=== PATIENT | male | born 1950 | race Caucasian/White ===

== ENCOUNTER → 2023-11-21 12:54 | Outpatient (REF) | payer MEDICARE, SELFPAY | LOC: RAD 12:54 | PROVIDERS: ATTENDING PHYSICIAN Surgery Vascular Surgery; FAMILY PHYSICIAN Family Medicine | DX: Z01.818 Encounter for other preprocedural examination (principal) | CPT/HCPCS: 93985 ==

== ENCOUNTER 2023-12-18 06:22 | Day surgery (SDC) | payer MEDICARE, SELFPAY ==
--- NOTE | 2023-12-12 09:32 | PTCARENOTE ---
Dr. Calderón reviewed ECG done on 09/01/23; no actions requested.
[2023-12-18] VITALS (11 sets, daily range): BP systolic 118–147; BP diastolic 60–110; BMI 28.7
[2023-12-18] MEDS: NSS 500 IV (06:30)
[2023-12-18] MEDS: PERIDEX 0.12% ORAL RINSE 15 ML PO (06:44)
[2023-12-18] MEDS: BACTROBAN NASAL 1 GRAM NASAL (06:44)
--- NOTE | 2023-12-18 06:55 | W.SUR.PREOP ---
Pre-Operative Surgical Note
-
I have examined this patient prior to the performance of the scheduled procedure.
The patient's condition is unchanged from the time of the current History and
Physical and the patient is able to undergo the scheduled procedure.
[2023-12-18 07:08] LABS: Glucose - Point of Care 105 mg/dl (70-99)
[2023-12-18 07:12] LABS: Hematocrit 30.3 % (39.0-52.0); Hemoglobin 9.8 g/dL (13.0-18.0); Mean Corp Hgb Conc. 32.3 g/dL (33.0-37.0); Mean Corpuscular Hgb 29.7 pg (27.0-31.0); Mean Corpuscular Volume 91.8 fL (80.0-94.0); Mean Platelet Volume 10.2 fL (7.4-10.4); Platelet Count 192 10^3/uL (130-400); Red Cell Dist. Width 14.7 % (11.5-14.5)
[2023-12-18 07:21] LABS: INR 1.17; PT 14.7 Sec (11.4-14.6)
[2023-12-18 07:22] LABS: APTT 27.2 Sec (23.4-35.0)
[2023-12-18 07:24] LABS: Blood Urea Nitrogen 77 mg/dl (9-20); Calcium 9.3 mg/dl (8.4-10.2); Carbon Dioxide 18 mmol/L (22-30); Chloride 111 mmol/L (98-107); Glucose 99 mg/dl (70-99); Potassium 4.3 mmol/L (3.5-5.1); Sodium 140 mmol/L (135-145); eGFR 16.87
--- NOTE | 2023-12-18 09:19 | W.IMMPOSTOP ---
Surgical Immed Post Op Note
-
Primary Surgeon: Dr. Paulo Zaragoza MD
Assisting Surgeon: Dr. Lalito Forte MD, PhD
Pre-op Diagnosis: CKD requiring dialysis access
Post-op Diagnosis: LUE AVF creation for dialysis access
Procedure Performed: LUE AVF creation for dialysis access
Anesthesia Type: General
Specimen / Cultures: N/A
Estimated Blood Loss: None/minimal
Complications: None
Operative Findings: Preoperatively, the left upper extremity basilic vein and cephalic veins were evaluated by ultrasound. Incision was made in the left upper extremity, we carefully dissected until identifying the left basilic vein. A vessel loop
was passed around the left basilic vein. We then dissected and exposed the left brachial artery. Proximal and distal control of the left brachial artery was obtained with vessel loops. The basilic vein was ligated with a silk tie and subsequently
divided. Arteriotomy was performed in the left brachial artery and an end to side anastomosis between the left basilic vein and left brachial artery was performed with 7-0 prolene suture. Following completion of the anastomosis, a palpable thrill
was confirmed in the left basilic vein proximally and a palpable pulse was noted at the left radial artery. The incision was closed with two layers of suture and skin glue.
--- NOTE | 2023-12-18 09:22 | OR.RPT ---
Operative Report
Operative Report
Date of Operation: 12/18/2023
Pre Op Diagnosis: Chronic kidney disease with anticipated need for hemodialysis
Post Op Diagnosis: Chronic kidney disease with anticipated need for hemodialysis
Procedure: Creation of left upper extremity brachiobasilic AV fistula (first stage of a planned two-stage basilic vein transposition)
Surgeon: Paulo Zaragoza III, MD
[facility]: Lalito Forte MD PGY1
Anesthesia: General
Complications: None
Estimated Blood Loss: 15 cc
History and Indications for Procedure: 73-year-old male with chronic kidney disease and anticipated need for hemodialysis initiation.
Procedure in Detail: Lui Choudhury was correctly identified and placed supine on the operating table. After adequate induction of anesthesia the left arm was positioned, prepped and draped in the usual sterile fashion. Preoperative antibiotics
were administered. A timeout procedure was performed with the nursing and anesthesia staff confirming the patients identity as well as the nature and laterality of the procedure.
I performed intraoperative ultrasound on the veins of the left arm. I identified the upper arm basilic vein from the elbow to the axilla. The brachial artery was also identified in the distal upper arm and proximal forearm. The appropriate site for
the incision was then identified in the distal upper arm, just proximal to the elbow.
An incision was then made in the distal upper arm. Careful sharp dissection was performed and the basilic vein exposed. Branches of the vein were ligated between ties. The brachial artery was exposed with sharp dissection. Proximal and distal
control was obtained with vessel loops.
The distal end of the basilic vein was ligated with a silk tie. The vein was transected and flushed proximally with heparinized saline. The vein flushed easily and without resistance. The vessel loops on the artery were secured. An arteriotomy was
made with an 11-blade. This was extended just slightly proximally and distally with Santiago scissors. The proximal and distal artery was flushed with heparinized saline. The end of the vein was spatulated slightly. An end-to-side anastomosis was
performed from the end of the basilic vein to the brachial artery with a running 7-0 Prolene. At the completion of the anastomosis the proximal vessel loop was released first. After several heartbeats the distal brachial artery loop was released.
The suture line was closely inspected and hemostasis achieved. There was an excellent thrill in the vein. There was a good pulse in the brachial artery proximal and distal to the anastomosis.
The wound was irrigated with saline. Hemostasis was achieved in the wound bed. The wound was closed in multiple layers and sterile dressings applied.
The patient tolerated the procedure well and was taken to the PACU in stable condition.
Attestation: I was present and responsible for the entire procedure
Signed:
Paulo Zaragoza III, MD
[facility] V[facility] Surgery
[phone] (jjqg)
[2023-12-18 09:24] LABS: Glucose - Point of Care 119 mg/dl (70-99)
== END 2023-12-18 11:26 | disposition home or self-care (01) ==
LOC: CATH 06:22
PROVIDERS: ATTENDING PHYSICIAN Surgery Vascular Surgery; FAMILY PHYSICIAN Family Medicine
DX: I12.9 Hypertensive chronic kidney disease with stage 1 through stage 4 chronic kidney disease, or unspecified chronic kidney disease (principal); N18.9 Chronic kidney disease, unspecified; I25.10 Atherosclerotic heart disease of native coronary artery without angina pectoris; Z79.01 Long term (current) use of anticoagulants; Z87.891 Personal history of nicotine dependence
CPT/HCPCS: 36821; 80048; 82962; 85027; 85610; 85730

== ENCOUNTER → 2024-01-24 12:36 | Outpatient (REF) | payer MEDICARE, SELFPAY | LOC: RAD 12:36 | PROVIDERS: ATTENDING PHYSICIAN Registered Nurse; FAMILY PHYSICIAN Family Medicine | DX: N18.9 Chronic kidney disease, unspecified (principal); I77.0 Arteriovenous fistula, acquired | CPT/HCPCS: 93990 ==

== ENCOUNTER 2024-02-15 07:22 | Day surgery (SDC) | payer MEDICARE, SELFPAY ==
[2024-02-15] VITALS (10 sets, daily range): BP systolic 116–153; BP diastolic 64–78; BMI 37.8
[2024-02-15 07:57] LABS: Glucose - Point of Care 111 mg/dl (70-99)
[2024-02-15] MEDS: BACTROBAN NASAL 1 GRAM NASAL (08:01)
[2024-02-15] MEDS: NSS 500 IV (08:05)
[2024-02-15 08:11] LABS: Hemoglobin 10.6 g/dL (13.0-18.0); Mean Corp Hgb Conc. 32.1 g/dL (33.0-37.0); Mean Corpuscular Hgb 29.9 pg (27.0-31.0); Mean Platelet Volume 10.1 fL (7.4-10.4); Platelet Count 235 10^3/uL (130-400); Red Blood Cell Count 3.55 10^6/uL (4.70-6.10); Red Cell Dist. Width 12.7 % (11.5-14.5); White Blood Cell Count 10.4 10^3/uL (4.8-10.8)
[2024-02-15 08:26] LABS: Blood Urea Nitrogen 65 mg/dl (9-20); Calcium 9.4 mg/dl (8.4-10.2); Carbon Dioxide 26 mmol/L (22-30); Chloride 105 mmol/L (98-107); Estimated Creatinine Clearance 17 ml/min; Glucose 110 mg/dl (70-99); Sodium 141 mmol/L (135-145); eGFR 17.46
[2024-02-15 08:28] LABS: INR 1.24; PT 15.4 Sec (11.4-14.6)
[2024-02-15 08:29] LABS: APTT 33.1 Sec (23.4-35.0)
--- NOTE | 2024-02-15 10:37 | OR.RPT ---
Operative Report
Operative Report
Date of Operation: 02/15/2024
Pre Op Diagnosis: Left upper extremity brachiobasilic AV fistula (status post 1st stage of planned 2 stage basilic vein transposition)
Post Op Diagnosis: Left upper extremity brachiobasilic AV fistula (status post 1st stage of planned 2 stage basilic vein transposition)
Procedure: Revision of left upper extremity brachiobasilic AV fistula with transposition of the basilic vein (second stage BVT)
Surgeon: Paulo Zaragoza III, MD Hand Chain Maker:
Hand Chain Maker: Lalito Forte MD PhD, PGY1
Anesthesia: General
Complications: None
Estimated Blood Loss: 20 cc
History and Indications for Procedure: 73-year-old male who is status post first stage brachiobasilic AV fistula with plan for revision and transposition of the basilic vein.
Procedure in Detail: Lui Choudhury was correctly identified and placed supine on the operating table. After adequate induction of anesthesia the left arm was abducted 90 degrees. A timeout procedure was performed with the nursing and anesthesia
staff confirming the patient's identity and the nature and laterality of the procedure. The basilic vein was marked in the upper arm with ultrasound guidance. The arm was then circumferentially prepped and draped in the usual sterile fashion. We
made an incision over the medial upper arm. The entire basilic vein was dissected with careful sharp dissection. All branches were ligated and divided between ties and metal clips. The vein was good caliber along the entire course and had an
excellent thrill. Once the entire vein had been carefully dissected we then created a gentle curved tunnel lateral to the incision over the bicep with a tunneling device. Proximal control was obtained on the vein with a curved pediatric clamp. The
vein was marked and then transected near the arterial anastomosis. The vein was then brought through the tunnel carefully. The two ends of the vein were anastomosed to one another in an end-to-end fashion using a running 7-0 Prolene suture. At the
completion of the anastomosis the clamp was released and flow restored through the fistula. There was an excellent thrill in the tunnel. The suture line was inspected for hemostasis and this was achieved. The wound was irrigated with warm saline
solution. Hemostasis was achieved in the wound bed. The wound was then closed in multiple layers and sterile dressings applied. The patient had an easily palpable thrill in the tunnel at the conclusion of the case.
Attestation: I was present and responsible for the entire procedure
Signed:
Paulo Zaragoza III, MD
[facility] V[facility] Surgery
[phone] (cell)
--- NOTE | 2024-02-15 10:38 | W.IMMPOSTOP ---
Surgical Immed Post Op Note
-
Primary Surgeon: Dr. Paulo Zaragoza III, MD
Assisting Surgeon: Dr. Lalito Forte MD, PhD (PGY-1)
Pre-op Diagnosis: End stage renal disease requiring dialysis s/p stage 1 brachio-basilic AV fistula
Post-op Diagnosis: End stage renal disease requiring dialysis s/p stage 1 brachio-basilic AV fistula and now s/p stage 2 superficialization of the brachio-basilic AV fistula
Procedure Performed: Stage 2 superficialization/transposition of brachio-basilic AV fistula
Anesthesia Type: General
Specimen / Cultures: None
Estimated Blood Loss: Minimal
Complications: None
Operative Findings: The patient was brought to the OR and placed in the supine position. After induction of anesthesia, ultrasound guidance was used to map the course of the basilic vein from the prior anastomosis to the axillary vein and the skin
was marked along this trajectory. The patient was then prepped and draped in usual sterile fashion. The prior AV fistula incision was extended toward the axilla along the course of the basilic vein. Soft tissues were dissected with a combination of
electrocautery and sharp dissection. The basilic vein was circumferentially dissected along its entire length. Large venous branches of the basilic vein were ligated and divided with silk ties. A superficial soft tissue tunnel was created along the
subcutaneous tissue cranial to the basilic vein. A clamp was placed distally on the basilic vein. The vein was transected and heparinized saline was injected into the vein proximally and the proximal vein was passed through the subcutaneous tunnel.
Then a running 7-0 prolene suture was used to perform an end-to-end anastomosis between the two ends of the basilic vein. Following the anastomosis, the clamp was removed and an excellent palpable thrill was noted along the course of the basilic
vein. Hemostasis was achieved along the wound bed. The soft tissues and skin were closed with running 3-0 and 4-0 sutures and skin glue on the surface. At the conclusion of the case there was an excellent palpable thrill along the course of the
basilic vein and a palpable radial pulse. The patient was transported to PACU in stable condition.
[2024-02-15 10:39] LABS: Glucose - Point of Care 125 mg/dl (70-99)
== END 2024-02-15 12:59 | disposition home or self-care (01) ==
LOC: CATH 07:22
PROVIDERS: ATTENDING PHYSICIAN Surgery Vascular Surgery; FAMILY PHYSICIAN Family Medicine
DX: Z49.01 Encounter for fitting and adjustment of extracorporeal dialysis catheter (principal); I12.0 Hypertensive chronic kidney disease with stage 5 chronic kidney disease or end stage renal disease; E11.22 Type 2 diabetes mellitus with diabetic chronic kidney disease; N18.6 End stage renal disease; Z99.2 Dependence on renal dialysis; E78.5 Hyperlipidemia, unspecified; I25.10 Atherosclerotic heart disease of native coronary artery without angina pectoris; Z87.891 Personal history of nicotine dependence; Z79.01 Long term (current) use of anticoagulants
CPT/HCPCS: 36832; 80048; 82962; 85027; 85610; 85730

== ENCOUNTER 2024-03-31 15:00 | Inpatient (IN) | payer MEDICARE, SELFPAY ==
[2024-03-27] VITALS (11 sets, daily range): BP systolic 123–149; BP diastolic 57–74; BMI 29.2
[2024-03-27 13:07] LABS: Glucose - Point of Care 100 mg/dl (70-99)
--- NOTE | 2024-03-27 15:30 | W.PN.ADMIT ---
Progress Note - Admit
Progress Note - Admit
pt s/p cysto/ sp tube placement
admit for observation for hematuria
sp tube and urethral flaherty to bag drainage
[2024-03-27] MEDS: NSS 1000 IV (16:18)
--- NOTE | 2024-03-27 16:23 | SUR.PHASEI ---
patient has both a suprapubic tube and flaherty cath - flaherty through compression stockings on left, suprapubic through compression stocking on right - per Dr Pisano. flaherty was slight blood tinged and now brownish, suprapubic is bloody drainage
[2024-03-27] MEDS: NEURONTIN 100 MG PO ×2 (17:36→21:01)
[2024-03-27] MEDS: SODIUM BICARBONATE 650 MG PO ×2 (17:36→21:00)
[2024-03-27] MEDS: COLACE 100 MG PO (20:44)
[2024-03-27] MEDS: LIPITOR 40 MG PO (21:00)
[2024-03-27] MEDS: KEPPRA 500 MG PO (21:00)
[2024-03-28] VITALS (12 sets, daily range): BP systolic 84–155; BP diastolic 44–86
[2024-03-28] MEDS: NSS 1000 IV ×2 (04:00→18:19)
[2024-03-28] MEDS: COLACE 100 MG PO (07:30)
[2024-03-28] MEDS: ZOLOFT 100 MG PO (07:30)
[2024-03-28] MEDS: SODIUM BICARBONATE 650 MG PO ×3 (07:31→22:33)
[2024-03-28] MEDS: NEURONTIN 100 MG PO ×3 (07:31→22:33)
[2024-03-28] MEDS: VITAMIN D3 (cholecalciferol) 50 MCG PO (07:31)
[2024-03-28] MEDS: ROCALTROL 0.25 MCG PO (07:31)
[2024-03-28] MEDS: KEPPRA 500 MG PO ×2 (07:31→22:33)
--- NOTE | 2024-03-28 07:45 | W.PN.URO.CBU ---
Today's Communication / Plan
-
sp tube plugged
discharge later today
Assessment / Plan
-
s/p sp tube placement
sp tube plugged
advance diet/UOOB to chair
discharge today if site stays dry
Diagnosis
-
Date of Service: March 28, 2024
-
Patient Diagnosis:
urinary retention
Post Op Day:
sp tube placement 03/28
Subjective
-
pt without complaint
no urine leak around sp tube site
urine clear
Objective
-
Vital Signs
Temp Pulse Resp BP Pulse Ox
99.1 F 72 17 148/64 95
03/28/24 07:30 03/28/24 07:30 03/28/24 07:30 03/28/24 07:30 03/28/24 07:30
Intake and Output
03/27/24 03/28/24 03/29/24
06:59 06:59 06:59
Intake Total 1510 / 1510
Output Total 1080 / 1080
Balance 430 / 430
Intake:
Oral fluids 500 / 500
IV fluids (Total) 1010 / 1010
nss 50 / 50
Output:
Urine, Zaragoza 705 / 705
Suprapubic output 375 / 375
Physical Exam
-
General - no acute distress
Abdomen - soft, non-tender, sp tube in place
[2024-03-28] MEDS: BUMEX 2 MG PO (08:00)
[2024-03-28] MEDS: STERILE WATER FOR INJECTION 10 ML IV (10:15)
[2024-03-28] MEDS: ROCEPHIN 1000 MG IV (10:15)
--- NOTE | 2024-03-28 11:46 | CM ---
Addendum entered by Liz Rosenthal RN 03/28/24 14:25:
CM spoke with the patient's spouse via telephone. Spouse looking for assistance in home due to patient's declining cognitive issues. Discussed option of sending a request for the [facility] to evaluate for potential county resources. Request for
Assessment faxed to the [facility].
Original Note:
Reviewed the chart notes and spoke with the patient at the bedside. Patient resides with his spouse in a two story home with two steps to enter. The patient has a rolling walker, cane, and rollator. The patient has had VN in the past, and been to
[facility]. The patient's pharmacy of choice is the [facility] [address] [place]. CM continues to be available to patient/family and is monitoring medical plan for needs at discharge.
Plan: Discharge to home when medically stable.
--- NOTE | 2024-03-28 16:50 | W.PN.UPDATE ---
Addendum entered and electronically signed by Saurav Pisano Jr., MD 03/28/24 17:34:
did speak to at bedside to update on plan
Original Note:
Update Note
Progress Note Update
pt was doing well this am with sp tube plugged
developed very dark/gross hematuria just before lunch
pt seen at bedside- cath irrigated- sig hematuria and clots with clotting around penis- no sig bleeding at sp tube site
3 way flaherty placed via urethra/irrigated till no clots recovered- cbi started through sp tube
will keep npo/check labs- hospitalist consult- if fails to clear- may need repeat cysto and fulguration- suspect this is prostate bleeding
also- will have sw see to discuss snif placement given pt's severe limitations with mobility
[2024-03-28] MEDS: VALIUM INJECTION 5 MG IV (17:06)
[2024-03-28 17:12] LABS: Hematocrit 29.9 % (39.0-52.0); Hemoglobin 10.2 g/dL (13.0-18.0); Mean Corp Hgb Conc. 34.1 g/dL (33.0-37.0); Mean Corpuscular Volume 87.9 fL (80.0-94.0); Mean Platelet Volume 10.2 fL (7.4-10.4); Platelet Count 169 10^3/uL (130-400); Red Cell Dist. Width 13.8 % (11.5-14.5); White Blood Cell Count 13.5 10^3/uL (4.8-10.8)
--- NOTE | 2024-03-28 17:15 | CON.HOSP ---
Consultation
-
Date/Time Consultation Requested: 03/28/2024 1630
Date/Time Consultation Performed: 1715
Requesting Provider: Dr. Saurav Pisano
Performing Provider: Dr. Tarik Lopez
Reason for Consultation: Management of medical problems
Family Physician
-
Family Physician: NO INTERVIEW UNKNOWN
Chief Complaint
-
Hematuria, urinary retention
History of Present Illness
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
hypertension, atrial fibrillation on Eliquis, hyperlipidemia, chronic ambulatory dysfunction, history of right femoral neck fracture, COVID-19 viral infection, history of BPH was admitted by urology service for elective suprapubic catheter
placement. Postprocedure patient was doing well and was planned to be discharged today home although patient started developing new hematuria with further monitoring warranted. Urology is planning for patient to possibly take 2 OR later in the
evening today versus tomorrow based on clinical course.
During the visit patient was somewhat sedated from Valium which patient required for ongoing bladder spasms. Clear bright red blood through Zaragoza catheter/on CBI irrigation.
Patient denies of having any ongoing chest pain/shortness of breath/abdominal pain/nausea. Patient has been afebrile during this hospital stay.
Medical History
Past Medical History
Past Medical History: Reports Other
Additional Past Medical History:
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
ambulatory dysfunction, history of right femoral neck fracture, COVID-19 viral infection, history of BPH s/p TURP
Past Surgical History: Reports Other
Social History
Unable to obtain full social history at this time due to: Other (Unable to provide any information during this encounter, social h/o based on chart review)
Tobacco: Former Smoker
Alcohol: None
Personal:
Living: With Family
Family History
Family History: Unable to Obtain
Allergies / Home Medications
Allergies reflects when Allergies were last updated in [facility].
Home Medications with original date entered in [facility]
Allergy/Medication List:
Allergies
Allergy/AdvReac Type Severity Reaction Status Date / Time
Anesthetics - Amide Type - Allergy Unknown Unknown Verified 03/27/24 12:39
Select A
alcohol Allergy Anaphylaxis Verified 03/27/24 12:39
to beer
dexamethasone [From Decadron] Allergy Hypotension Verified 03/27/24 12:39
tomato Allergy Anaphylaxis Verified 03/27/24 12:39
Home Medications
bumetanide 1 mg tablet 2 mg PO DAILY Fluid retention/Swelling 09/29/10
sertraline 100 mg tablet 100 mg PO DAILY Depression 07/10/22
atorvastatin 40 mg tablet 40 mg PO HS Hyperlipidemia 07/11/22
calcitriol 0.25 mcg capsule 0.25 mcg PO DAILY Supplement 07/11/22
apixaban 2.5 mg tablet (Eliquis) 2.5 mg PO BID 12/14/23
cholecalciferol (vitamin D3) 50 mcg (2,000 unit) capsule (Vitamin D3) 50 mcg PO DAILY 12/14/23
gabapentin 100 mg capsule 100 mg PO TID 12/14/23
levetiracetam 500 mg tablet (Keppra) 500 mg PO BID 12/14/23
sodium bicarbonate 650 mg tablet 650 mg PO TID 02/07/24
oxycodone 5 mg tablet 5 mg PO Q4HPRN PRN moderate pain #7 tabs 02/15/24
cephalexin 500 mg capsule 500 mg PO BID #14 caps 03/28/24
Review of Systems
-
Unable to obtain full review of systems at this time due to: Acuity (Limited ROS per HPI)
Physical Exam
Vital Signs
Vital Signs
Temp Pulse Resp BP Pulse Ox
98.6 F 104 16 147/86 93
03/28/24 15:35 03/28/24 15:35 03/28/24 15:35 03/28/24 15:35 03/28/24 15:35
Physical Exam
General: No Apparent Distress
HEENT: Atraumatic; Negative Oxygen
Respiratory: Clear
Cardiac: S1/S2, Regular Rhythm and Tachycardia; Negative Murmur
GI: Soft, Non Tender and Non Distended
Rectal: Deferred by Provider
Genito-urinary: Zaragoza Catheter (on CBI with clear red urine draining) and Suprapubic Tube (blood around cath insertion site)
Musculoskeletal: No Clubbing, No Cyanosis and No Edema
Skin: Negative Rash
Neuro: Awake, Alert and Other (Right Upper and lower ext decreaesd motor power); Negative Oriented
Laboratory Results
-
Laboratory Results
03/28/24 16:55
Data Reviewed
-
Lab Data: Labs Reviewed, Discussed with Physician, Discussed with Nurse and Discussed with Patient
Impression / Plan
-
1. Hematuria
Urinary retention s/p suprapubic catheter on 03/27
History of BPH s/p TURP
-Patient underwent suprapubic catheter placement which was uneventful
-Today patient started having new hematuria and required to be started on CBI
-Patient have history of A-fib, Eliquis on hold due to ongoing hematuria
-Hemoglobin 10.2, close to baseline. Will require blood transfusion if less than 7, continue monitoring
-Patient having some bladder spasms and on symptomatic care with Valium/Dilaudid
-Urology planning to take patient to the OR again today for possible cystoscopy/fulguration
-No signs of ongoing urosepsis, on Rocephin empirically.
2. Essential hypertension
-Maintain on as needed hydralazine for systolic blood pressure above 160
-Will add small dose calcium channel christina or beta-christina if continued to have persistent high blood pressure
3. CKD stage IV
Metabolic acidosis
-Patient have presumed diabetic nephropathy and has been followed by nephrology in outpatient basis
-Patient have left arm AV fistula performed on 02/15/24 for potential need HD down the road
-At this point avoid unnecessary nephrotoxic medication exposure
-Follow-up BMP has been ordered, BMP is pending at time of dictating this note.
-Patient on oral bicarb therapy at home, can be resumed orally if needed based on BMP
-Patient also on Bumex which needs to be held with ongoing blood loss/hypovolemia
4. Recovered insulin-dependent diabetes mellitus
-With developing CKD patient not requiring insulin
-Hemoglobin A1c trend reviewed last check and July 01 showing A1c of 6.6
-Maintain on insulin sliding scale at this point
5. History of CVA with residual right-sided weakness
History of mechanical fall
-PT evaluation once stabilized from urological perspective
6. Parox afib
-not on rate control medication
-eliquis to be held.
obstructive sleep apnea
hyperlipidemia
chronic ambulatory dysfunction
history of right femoral neck fracture
COVID-19 viral infection
history of BPH s/p TURP
DVT PPX - scd
Full code
Total time spent : 76 mins
I personally saw and examined the patient.
I have reviewed all diagnostic interpretations and treatment plans as written.
Time includes patient management by me, time spent at the patients bedside, time to review lab and imaging results, discussing patient care, documentation in the medical record, and time spent with the family or caregiver and discussing care plan
with RN/Consultants.
[2024-03-28 17:17] LABS: INR 1.33; PT 16.3 Sec (11.4-14.6)
[2024-03-28 17:18] LABS: APTT 33.9 Sec (23.4-35.0)
[2024-03-28 17:35] LABS: Blood Urea Nitrogen 67 mg/dl (9-20); Carbon Dioxide 21 mmol/L (22-30); Chloride 105 mmol/L (98-107); Estimated Creatinine Clearance 17 ml/min; Glucose 149 mg/dl (70-99); Potassium 3.6 mmol/L (3.5-5.1); Sodium 137 mmol/L (135-145); eGFR 16.87
[2024-03-28 20:21] LABS: Glucose - Point of Care 220 mg/dl (70-99)
--- NOTE | 2024-03-28 20:26 | W.PN.UPDATE ---
Update Note
Progress Note Update
Patient assessed this evening due to ongoing hematuria, clotting, leaking around catheter
Minimal clot in bladder but newly placed suprapubic tube does not draw back in any configuration
Will evaluate in OR for positioning, hemostasis, possible tube replacement
[2024-03-28] MEDS: COLACE PO (21:32)
[2024-03-28] MEDS: KEPPRA PO (21:32)
[2024-03-28] MEDS: LIPITOR 40 MG PO (22:33)
--- NOTE | 2024-03-28 23:12 | PTCARENOTE ---
Addendum entered by Leonard Luther RN 03/28/24 23:51:
Pt SBP has been running low in the mid 80's. 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
Original Note:
Pt was seen by urology and was send to the OR at 2014 and came back at 2220. Pt is AAOx3 to 2, forgetful at times. Gen weakness. NSR to ST w/ PVC. Pt was place on 2L O2 NC upon arrival to the floor from PACU. Prior going to the OR pt was bleeding
around his SP. Continues irrigation still in place going in through the SP and coming out from the 3 way flaherty cath. Pt appears comfortable in bed. Will cont w/ tx plan.
[2024-03-28 23:26] LABS: Glucose - Point of Care 180 mg/dl (70-99)
[2024-03-28] MEDS: ProAmatine 5 MG PO (23:47)
[2024-03-28] MEDS: NSS 250 IV (23:47)
[2024-03-28 23:57] LABS: Hematocrit 25.6 % (39.0-52.0); Hemoglobin 8.8 g/dL (13.0-18.0)
[2024-03-29] VITALS (9 sets, daily range): BP systolic 108–129; BP diastolic 50–66
--- NOTE | 2024-03-29 04:26 | W.PN.UPDATE ---
Update Note
Progress Note Update
RN notified BEREAVEMENT COORDINATOR BP 85/55, manually 84/55 HR 90's. NSS 250 ml ordered, Midodrine 5mg PO once given, h/h 8.8/25.6, patient is symptomatic with dizziness. will order PRBC's, patient states he feels better with BP coming up 110/60 hr 90, Will await labs
in AM.
H/H 8.2/24.5, Patient without any symptoms at present. BP 110/60, 72, 97.4, 94% RA, urine is clear per nursing, will check H/H AM.
[2024-03-29 05:01] LABS: Hematocrit 24.5 % (39.0-52.0); Hemoglobin 8.2 g/dL (13.0-18.0); Mean Corp Hgb Conc. 33.5 g/dL (33.0-37.0); Mean Corpuscular Hgb 31.1 pg (27.0-31.0); Mean Corpuscular Volume 92.8 fL (80.0-94.0); Mean Platelet Volume 10.3 fL (7.4-10.4); Platelet Count 163 10^3/uL (130-400); Red Blood Cell Count 2.64 10^6/uL (4.70-6.10); Red Cell Dist. Width 13.8 % (11.5-14.5); White Blood Cell Count 11.9 10^3/uL (4.8-10.8)
[2024-03-29 05:22] LABS: Blood Urea Nitrogen 66 mg/dl (9-20); Calcium 8.2 mg/dl (8.4-10.2); Carbon Dioxide 19 mmol/L (22-30); Chloride 109 mmol/L (98-107); Estimated Creatinine Clearance 17 ml/min; Glucose 125 mg/dl (70-99); Potassium 3.6 mmol/L (3.5-5.1); Sodium 139 mmol/L (135-145); eGFR 16.87
[2024-03-29] MEDS: ROCALTROL 0.25 MCG PO (07:22)
[2024-03-29] MEDS: VITAMIN D3 (cholecalciferol) 50 MCG PO (07:22)
[2024-03-29] MEDS: SODIUM BICARBONATE 650 MG PO ×3 (07:22→22:00)
[2024-03-29] MEDS: NEURONTIN 100 MG PO ×3 (07:22→21:59)
[2024-03-29] MEDS: ZOLOFT 100 MG PO (07:22)
[2024-03-29] MEDS: KEPPRA 500 MG PO ×2 (07:22→19:28)
[2024-03-29] MEDS: COLACE 100 MG PO ×2 (07:23→19:28)
[2024-03-29 07:37] LABS: Hematocrit 25.9 % (39.0-52.0); Hemoglobin 8.7 g/dL (13.0-18.0)
[2024-03-29 07:40] LABS: Glucose - Point of Care 130 mg/dl (70-99)
--- NOTE | 2024-03-29 07:59 | W.PN.HOSP.TC ---
Today's Communication/Plan
-
see bold
Assessment / Plan
Assessment / Plan
Gen: NAD, Awake and alert
Eyes: EOMI, PERRLA, no scleral icterus.
Neck: supple.
CV: RRR, +S1/S2, no m/r/g.
Resp: CTAB, no rales, wheezes, or rhonchi.
Abd: +BS, soft, NT, ND
Skin: No rashes.
: flaherty bag with clear urine
Neuro: CN 2-12 intact, non-focal.
Psych: Normal mood and affect.
Acute blood loss anemia due to hematuria and exacerbated by Eliquis:
-h/o BPH s/p TURP
-h/o Urinary retention s/p suprapubic catheter on 03/27/24
-03/28/24 patient started having new hematuria and was started on CBI
-s/p cystoscopy with clot evacuation 03/28/24
-Eliquis on hold
-PRN Valium/Dilaudid for bladder spasms/pain
-currently on prophylactic Rocephin, currently without evidence of infection
Essential hypertension:
-hypotensive O/N, received Midodrine 5mg, 250cc NS
CKD4
-with non-AG Metabolic acidosis
-Patient have presumed diabetic nephropathy and has been followed by nephrology in outpatient basis
-Patient have left arm AV fistula performed on 02/15/24 for potential need HD in the future
-Cr at baseline
-cont PO bicarb
-hold home bumex with ongoing blood loss/hypovolemia
Other problems:
DM2: SSI/accuchecks. check a1c.
h/o CVA with residual right-sided weakness: cont statin, Eliquis on hold
h/o mechanical fall
PAF: Eliquis on hold with ABLA
LEXIS
HLD
Chronic ambulatory dysfunction
h/o R femoral neck fracture
h/o BPH s/p TURP
FULL/SCDs
Anticipated Discharge: 24 - 48 hours
Subjective/Interval History
-
Date of Service: March 29, 2024
Denies CP/SOB.
Objective Data
-
Labs:
Laboratory Results
03/28/24 03/29/24 03/29/24
23:50 04:24 07:12
WBC 11.9 H
Hgb 8.8 L 8.2 L 8.7 L
Hct 25.6 L 24.5 L 25.9 L
Plt Count 163
Sodium 139
Potassium 3.6
Chloride 109 H
Carbon Dioxide 19 L
BUN 66 H
Creatinine 3.6 H
Glucose 125 H
Calcium 8.2 L
Vital Signs:
Vital Signs
Temp Pulse Resp BP Pulse Ox
97.6 F 62 16 119/50 96
03/29/24 07:58 03/29/24 07:58 03/29/24 07:58 03/29/24 07:58 03/29/24 07:58
I&O
03/28/24 03/29/24 03/30/24
06:59 06:59 06:59
Intake Total 1510 / 1510 2490 / 2490
Output Total 1080 / 1080 2950 / 2950
Balance 430 / 430 -460 / -460
[2024-03-29] MEDS: NOVOLOG FLEXPEN-LOW RESISTANCE SC (08:34)
--- NOTE | 2024-03-29 10:33 | W.PN.URO.CBU ---
Today's Communication / Plan
-
Trend hematuria
Appreciate medicine recs
Dispo planning
Assessment / Plan
-
s/p sp tube placement complicated by hematuria
returned to OR 03/28 for cystoscopy and clot evacuation
Hematuria resolved
sp tube plugged
regular diet
CBI clamped this AM with clear urine
Trend hematuria
Appreciate hospitalist recommendations
CM for rehab placement
Diagnosis
-
Date of Service: March 29, 2024
-
Patient Diagnosis:
urinary retention
Post Op Day:
sp tube placement 03/28
clot evacuation 03/28
Subjective
-
no issues overnight after clot evac
Objective
-
Vital Signs
Temp Pulse Resp BP Pulse Ox
97.6 F 62 16 119/50 96
03/29/24 07:58 03/29/24 07:58 03/29/24 07:58 03/29/24 07:58 03/29/24 07:58
Intake and Output
03/28/24 03/29/24 03/30/24
06:59 06:59 06:59
Intake Total 1510 / 1510 2490 / 2490
Output Total 1080 / 1080 2950 / 2950
Balance 430 / 430 -460 / -460
Intake:
Oral fluids 500 / 500 1440 / 1440
IV fluids (Total) 1010 / 1010 1050 / 1050
nss 50 / 50 50 / 50
Output:
Urine, Zaragoza 705 / 705 1100 / 1100
Suprapubic output 375 / 375
True Urine Output from CBI 0 / 185
Laboratory Results
03/29/24 07:12
03/29/24 04:24
Physical Exam
-
General - well developed, well nourished, no acute distress
Chest - clear
Abdomen - soft, non-tender, SPT in place with no bleeding
Skin - warm & dry with no rash
Neuro - AOx3, no motor deficits
Extremities - no clubbing, no cyanosis, no edema
[2024-03-29] MEDS: ROCEPHIN 1000 MG IV (10:38)
[2024-03-29] MEDS: STERILE WATER FOR INJECTION 10 ML IV (10:38)
[2024-03-29] MEDS: NSS 1000 IV ×2 (10:43→21:59)
[2024-03-29 13:07] LABS: Glucose - Point of Care 170 mg/dl (70-99)
--- NOTE | 2024-03-29 14:02 | CM ---
Attending placed consult for [facility]' with no specific details. TT Attending but not available. CM on 03/28/24 spoke with at length and plan was for patient to discharge home. requested in home assistance for . CM explained
that those services are private pay and names of agencies could be supplied if she was interested. [facility] was notified by CM to discuss possible available services with . This CM is uncertain if family is now looking for LTC or if attending is
requesting STR. No therapy consults have been placed and no evaluations have been done. Left messages for son and requesting call back for clarity.
[2024-03-29] MEDS: NOVOLOG FLEXPEN-LOW RESISTANCE 1 UNITS SC ×2 (14:15→17:32)
[2024-03-29 17:27] LABS: Glucose - Point of Care 184 mg/dl (70-99)
[2024-03-29 21:54] LABS: Glucose - Point of Care 157 mg/dl (70-99)
[2024-03-29] MEDS: LIPITOR 40 MG PO (21:59)
[2024-03-30] VITALS (11 sets, daily range): BP systolic 123–153; BP diastolic 39–71; PULSE 65; O2SAT 100
--- NOTE | 2024-03-30 07:55 | W.PN.HOSP.TC ---
Today's Communication/Plan
-
see bold
Assessment / Plan
Assessment / Plan
Gen: NAD, Awake and alert
Eyes: EOMI, PERRLA, no scleral icterus.
Neck: supple.
CV: remains RRR, +S1/S2, no m/r/g.
Resp: remains CTAB, no rales, wheezes, or rhonchi.
Abd: +BS, soft, NT, ND
Skin: No rashes.
: remains with flaherty bag with clear urine
Neuro: CN 2-12 intact, non-focal.
Psych: Normal mood and affect.
Acute blood loss anemia due to hematuria and exacerbated by Eliquis:
-h/o BPH s/p TURP
-h/o Urinary retention s/p suprapubic catheter on 03/27/24
-03/28/24 patient started having new hematuria and was started on CBI
-s/p cystoscopy with clot evacuation 03/28/24
-Eliquis on hold
-PRN Valium/Dilaudid for bladder spasms/pain
-currently on prophylactic Rocephin, currently without evidence of infection
Essential hypertension:
-hypotensive O/N 03/28/24-03/29/24, received Midodrine 5mg, 250cc NS
-currently on maintenance IV fluids
CKD4
-with non-AG Metabolic acidosis
-Patient have presumed diabetic nephropathy and has been followed by nephrology in outpatient basis
-Patient have left arm AV fistula performed on 02/15/24 for potential need HD in the future
-Cr at baseline
-cont PO bicarb
-hold home bumex with ongoing blood loss/hypovolemia
Other problems:
DM2: a1c 6.0, SSI/accuchecks.
h/o CVA with residual right-sided weakness: cont statin, Eliquis on hold
h/o mechanical fall
PAF: Eliquis on hold with ABLA
LEXIS
HLD
Chronic ambulatory dysfunction
h/o R femoral neck fracture
h/o BPH s/p TURP
FULL/SCDs
Anticipated Discharge: Within 24 hours
Subjective/Interval History
-
Date of Service: March 30, 2024
No new complaints.
Objective Data
-
Vital Signs:
Vital Signs
Temp Pulse Resp BP Pulse Ox
98.3 F 65 18 126/58 97
03/30/24 07:40 03/30/24 07:40 03/30/24 07:40 03/30/24 07:40 03/30/24 07:40
I&O
03/29/24 03/30/24 03/31/24
06:59 06:59 06:59
Intake Total 2490 / 2490 1340 / 1340
Output Total 2950 / 2950 900 / 900
Balance -460 / -460 440 / 440
[2024-03-30 09:14] LABS: Glucose - Point of Care 118 mg/dl (70-99)
[2024-03-30] MEDS: NEURONTIN 100 MG PO ×3 (09:16→21:26)
[2024-03-30] MEDS: STERILE WATER FOR INJECTION 10 ML IV (09:16)
[2024-03-30] MEDS: ZOLOFT 100 MG PO (09:16)
[2024-03-30] MEDS: ROCEPHIN 1000 MG IV (09:16)
[2024-03-30] MEDS: COLACE 100 MG PO ×2 (09:16→19:59)
[2024-03-30] MEDS: ROCALTROL 0.25 MCG PO (09:16)
[2024-03-30] MEDS: VITAMIN D3 (cholecalciferol) 50 MCG PO (09:17)
[2024-03-30] MEDS: KEPPRA 500 MG PO ×2 (09:17→19:59)
[2024-03-30] MEDS: NOVOLOG FLEXPEN-LOW RESISTANCE SC ×2 (09:17→12:47)
[2024-03-30] MEDS: SODIUM BICARBONATE 650 MG PO ×3 (09:17→21:26)
[2024-03-30 09:20] LABS: Blood Urea Nitrogen 69 mg/dl (9-20); Calcium 8.3 mg/dl (8.4-10.2); Carbon Dioxide 20 mmol/L (22-30); Chloride 109 mmol/L (98-107); Estimated Creatinine Clearance 17 ml/min; Glucose 104 mg/dl (70-99); Potassium 3.3 mmol/L (3.5-5.1); Sodium 138 mmol/L (135-145); eGFR 16.33
[2024-03-30 09:36] LABS: Hematocrit 21.1 % (39.0-52.0); Mean Corp Hgb Conc. 33.2 g/dL (33.0-37.0); Mean Corpuscular Hgb 29.4 pg (27.0-31.0); Mean Corpuscular Volume 88.7 fL (80.0-94.0); Mean Platelet Volume 10.5 fL (7.4-10.4); Platelet Count 118 10^3/uL (130-400); Red Blood Cell Count 2.38 10^6/uL (4.70-6.10); White Blood Cell Count 7.6 10^3/uL (4.8-10.8)
--- NOTE | 2024-03-30 10:34 | W.PN.URO.CBU ---
Today's Communication / Plan
-
Discharge planning
Assessment / Plan
-
s/p sp tube placement complicated by hematuria
returned to OR 03/28 for cystoscopy and clot evacuation
Hematuria resolved
CBI clamped this 03/29 with clear urine since
Appreciate hospitalist recommendations
CM for rehab placement
PT/OT
Diagnosis
-
Date of Service: March 30, 2024
-
Patient Diagnosis:
urinary retention
Post Op Day:
sp tube placement 03/28
clot evacuation 03/28
Subjective
-
No events overnight
No bleeding or clots
Objective
-
Vital Signs
Temp Pulse Resp BP Pulse Ox
98.3 F 65 18 126/58 97
03/30/24 07:40 03/30/24 07:40 03/30/24 07:40 03/30/24 07:40 03/30/24 07:40
Intake and Output
03/29/24 03/30/24 03/31/24
06:59 06:59 06:59
Intake Total 2490 / 2490 1340 / 1340
Output Total 2950 / 2950 900 / 900
Balance -460 / -460 440 / 440
Intake:
Oral fluids 1440 / 1440 440 / 440
IV fluids (Total) 1050 / 1050 900 / 900
nss 50 / 50
IV piggybacks 0 / 0
Output:
Urine, Flaherty 1100 / 1100 900 / 900
True Urine Output from CBI 1849 / 1849
Laboratory Results
03/30/24 08:14
03/30/24 08:14
Physical Exam
-
General - well developed, well nourished, no acute distress
Chest - clear bilaterally
Abdomen - soft, non-tender, SPT in place
- flaherty in place, clear urine
Skin - warm & dry with no rash
Neuro - AOx3, no motor deficits
Extremities - no clubbing, no cyanosis, no edema
Dressing - clean, dry, intact
[2024-03-30] MEDS: NSS 1000 IV (12:03)
--- NOTE | 2024-03-30 12:08 | W.PN.UPDATE ---
Update Note
Progress Note Update
Hemoglobin today came back 7.0 from prior >8
No gross hematuria or increase in hematoma at SPT site
Will transfuse 1 unit [address] and consider CT if HGB does not respond appropriately
[2024-03-30 12:46] LABS: Glucose - Point of Care 146 mg/dl (70-99)
[2024-03-30 13:37] LABS: Magnesium 2.1 mg/dl (1.6-2.3)
[2024-03-30] MEDS: KCL 40 MEQ PO (13:38)
--- NOTE | 2024-03-30 14:23 | PTCARENOTE ---
Pt currently with PRBC's transfusing via right FA int. Pt instructed on signs and symptoms to report of possible transfusion reaction. Pt verbalized understanding of instructions. Pt currently denies any symptoms of transfusion reaction. VSS, Pt is
afebrile. [facility] is within reach.
--- NOTE | 2024-03-30 15:33 | CM ---
Pt seen by PT. Recc for SNF. Pt currently receiving unit of blood. Will ask CM to follow up with spouse tomorrow and pt may benefit from a repeat PT eval once hemoglobin improves.
Did speak with spouse, whose preference is for SNF. Will provide PAC list at bedside, she is on her way to hospital now. Pt has SNF history at [facility].
Discharge dispo SNF vs home with VN.
[2024-03-30 17:10] LABS: Glucose - Point of Care 184 mg/dl (70-99)
[2024-03-30] MEDS: NOVOLOG FLEXPEN-LOW RESISTANCE 1 UNITS SC (17:15)
[2024-03-30 19:23] LABS: Hematocrit 24.3 % (39.0-52.0); Hemoglobin 8.4 g/dL (13.0-18.0); Mean Corp Hgb Conc. 34.6 g/dL (33.0-37.0); Mean Corpuscular Hgb 30.2 pg (27.0-31.0); Mean Corpuscular Volume 87.4 fL (80.0-94.0); Mean Platelet Volume 10.5 fL (7.4-10.4); Platelet Count 118 10^3/uL (130-400); Red Blood Cell Count 2.78 10^6/uL (4.70-6.10); White Blood Cell Count 7.3 10^3/uL (4.8-10.8)
[2024-03-30 21:21] LABS: Glucose - Point of Care 155 mg/dl (70-99)
[2024-03-30] MEDS: LIPITOR 40 MG PO (21:25)
[2024-03-31] VITALS (7 sets, daily range): BP systolic 129–162; BP diastolic 62–77; PULSE 59–63; O2SAT 99
[2024-03-31] MEDS: NSS 1000 IV (03:06)
[2024-03-31 06:44] LABS: Hematocrit 22.6 % (39.0-52.0); Hemoglobin 7.8 g/dL (13.0-18.0); Mean Corp Hgb Conc. 34.5 g/dL (33.0-37.0); Mean Corpuscular Hgb 31.2 pg (27.0-31.0); Mean Corpuscular Volume 90.4 fL (80.0-94.0); Mean Platelet Volume 10.8 fL (7.4-10.4); Platelet Count 116 10^3/uL (130-400); White Blood Cell Count 5.9 10^3/uL (4.8-10.8)
[2024-03-31 06:54] LABS: Blood Urea Nitrogen 65 mg/dl (9-20); Calcium 8.2 mg/dl (8.4-10.2); Carbon Dioxide 18 mmol/L (22-30); Chloride 112 mmol/L (98-107); Estimated Creatinine Clearance 18 ml/min; Glucose 108 mg/dl (70-99); Potassium 3.4 mmol/L (3.5-5.1); Sodium 139 mmol/L (135-145); eGFR 18.07
[2024-03-31] MEDS: SODIUM BICARBONATE 1300 MG PO ×3 (08:07→20:41)
[2024-03-31] MEDS: NOVOLOG FLEXPEN-LOW RESISTANCE SC ×2 (08:07→16:45)
[2024-03-31] MEDS: KCL 40 MEQ PO ×2 (08:07→11:38)
[2024-03-31 08:08] LABS: Glucose - Point of Care 115 mg/dl (70-99)
[2024-03-31] MEDS: ZOLOFT 100 MG PO (08:08)
[2024-03-31] MEDS: COLACE 100 MG PO ×2 (08:08→20:41)
[2024-03-31] MEDS: VITAMIN D3 (cholecalciferol) 50 MCG PO (08:08)
[2024-03-31] MEDS: ROCALTROL 0.25 MCG PO (08:08)
[2024-03-31] MEDS: KEPPRA 500 MG PO ×2 (08:08→20:40)
[2024-03-31] MEDS: NEURONTIN 100 MG PO ×3 (08:08→20:41)
--- NOTE | 2024-03-31 08:35 | W.PN.URO.CBU ---
Today's Communication / Plan
-
Trend HGB
CM for discharge planning
Assessment / Plan
-
s/p sp tube placement complicated by hematuria
returned to OR 03/28 for cystoscopy and clot evacuation
Hematuria resolved
CBI clamped this 03/29 with clear urine since
HGB 7 on Sunday s/p 1 unit transfused --> 7.8 today. Trend HGB
Appreciate hospitalist recommendations
CM for rehab placement
PT/OT
Diagnosis
-
Date of Service: March 31, 2024
-
Patient Diagnosis:
urinary retention
Post Op Day:
sp tube placement 03/28
clot evacuation 03/28
Subjective
-
stable after transfusion yesterday
Objective
-
Vital Signs
Temp Pulse Resp BP Pulse Ox
98.1 F 59 18 139/62 97
03/31/24 07:20 03/31/24 07:20 03/31/24 07:20 03/31/24 07:20 03/31/24 08:00
Intake and Output
03/30/24 03/31/24 04/01/24
06:59 06:59 06:59
Intake Total 1340 / 1340 3790 / 3790
Output Total 900 / 900 1600 / 1600
Balance 440 / 440 2190 / 2190
Intake:
Oral fluids 440 / 440 1440 / 1440
IV fluids (Total) 900 / 900 1850 / 1850
IV piggybacks 0 / 0
Blood products 250 / 250
Blood Product Amount Infused ( 250 / 250
mL)
Packed Rbc Leukoreduced Unit 250 / 250
[id number]
Output:
Urine, Zaragoza 900 / 900 1600 / 1600
Laboratory Results
03/31/24 06:15
03/31/24 06:15
Physical Exam
-
General - well developed, well nourished, no acute distress
Chest - clear bilaterally
Abdomen - soft, non-tender. No hematoma or distension
SPT taped in place
Zaragoza clear yellow
Skin - warm & dry with no rash
Neuro - AOx3, no motor deficits
Extremities - no clubbing, no cyanosis, no edema
--- NOTE | 2024-03-31 08:57 | W.PN.URO.CBU ---
Addendum entered and electronically signed by Saurav Pisano Jr., MD 03/31/24 09:30:
pt has begun to have moderate drainage around sp tube site- appears to be lysing hematoma
will NOT remove urethral cath today- observe drainage and hgb- possible tube removal tomorrow
Original Note:
Today's Communication / Plan
-
unclamp sp tube and remove urethral flaherty
Assessment / Plan
-
s/p sp tube placement complicated by hematuria
returned to OR 03/28 for cystoscopy and clot evacuation
Hematuria resolved
CBI clamped 03/29 with clear urine since
HGB 7 on Sunday s/p 1 unit transfused - Trend HGB
Appreciate hospitalist recommendations
CM for rehab placement/home care
PT/OT
when pt back in bed- plan to remove urethral cath and unclamp sp tube
would hold eliquis for another 5 days
if stable and dispo arranged- hopeful discharge in next 24-48hrs
Diagnosis
-
Date of Service: March 31, 2024
-
Patient Diagnosis:
urinary retention
Post Op Day:
sp tube placement 03/27
clot evacuation 03/28
Subjective
-
pt has been stable
did receive 1 unit of blood yesterday
hgb stable- no active signs of bleeding
since clot evac- urine clear
Objective
-
Vital Signs
Temp Pulse Resp BP Pulse Ox
98.1 F 59 18 139/62 97
03/31/24 07:20 03/31/24 07:20 03/31/24 07:20 03/31/24 07:20 03/31/24 08:00
Intake and Output
03/30/24 03/31/24 04/01/24
06:59 06:59 06:59
Intake Total 1340 / 1340 3790 / 3790
Output Total 900 / 900 1600 / 1600
Balance 440 / 440 2190 / 2190
Intake:
Oral fluids 440 / 440 1440 / 1440
IV fluids (Total) 900 / 900 1850 / 1850
IV piggybacks 0 / 0
Blood products 250 / 250
Blood Product Amount Infused ( 250 / 250
mL)
Packed Rbc Leukoreduced Unit 250 / 250
[id number]
Output:
Urine, Flaherty 900 / 900 1600 / 1600
Laboratory Results
03/31/24 06:15
03/31/24 06:15
Physical Exam
-
General - no acute distress
Abdomen - soft, non-tender, some stable induration- suspected hematoma around sp tube site
Genitalia - normal- flaherty in place- urine clear
[2024-03-31] MEDS: ROCEPHIN 1000 MG IV (09:19)
[2024-03-31] MEDS: BUMEX 2 MG PO (09:19)
[2024-03-31] MEDS: STERILE WATER FOR INJECTION 10 ML IV (09:20)
--- NOTE | 2024-03-31 09:26 | W.PN.HOSP.TC ---
Today's Communication/Plan
-
hold eliquis
f/u hbg level
abx per uro
dispo planning
Assessment / Plan
Assessment / Plan
Acute blood loss anemia due to hematuria and exacerbated by Eliquis:
-h/o BPH s/p TURP
-h/o Urinary retention s/p suprapubic catheter on 03/27/24
-03/28/24 patient started having new hematuria and was started on CBI
-s/p cystoscopy with clot evacuation 03/28/24
-Eliquis on hold
-currently on prophylactic Rocephin, currently without evidence of infection
-got 1 u prbc yesterday, hbg 7.8, f/u level
Essential hypertension:
-hypotensive O/N 03/28/24-03/29/24, received Midodrine 5mg, 250cc NS
-currently on maintenance IV fluids
CKD4
AG Metabolic acidosis
-Patient have presumed diabetic nephropathy and has been followed by nephrology in outpatient basis
-Patient have left arm AV fistula performed on 02/15/24 for potential need HD in the future
-Cr at baseline
-cont PO bicarb
-resume back on bumex
Other problems:
DM2: a1c 6.0, SSI/accuchecks.
h/o CVA with residual right-sided weakness: cont statin, Eliquis on hold
h/o mechanical fall
PAF: Eliquis on hold with ABLA
LEXIS
HLD
Chronic ambulatory dysfunction
h/o R femoral neck fracture
h/o BPH s/p TURP
FULL/SCDs
Anticipated Discharge: 24 - 48 hours
Subjective/Interval History
-
Date of Service: March 31, 2024
no complains overnight
clear urine in bag
Objective Data
-
Labs:
Laboratory Results
03/31/24
06:15
WBC 5.9
Hgb 7.8 L
Hct 22.6 L
Plt Count 116 L
Sodium 139
Potassium 3.4 L
Chloride 112 H
Carbon Dioxide 18 L
BUN 65 H
Creatinine 3.4 H
Glucose 108 H
Calcium 8.2 L
Vital Signs:
Vital Signs
Temp Pulse Resp BP Pulse Ox
98.1 F 68 18 156/67 97
03/31/24 07:20 03/31/24 09:19 03/31/24 07:20 03/31/24 09:19 03/31/24 08:00
I&O
03/30/24 03/31/24 04/01/24
06:59 06:59 06:59
Intake Total 1340 / 1340 3790 / 3790
Output Total 900 / 900 1600 / 1600
Balance 440 / 440 2190 / 2190
Review of Systems
-
Respiratory: Reports No Symptoms
Cardiac: Reports No Symptoms
Abdomen/GI: Reports No Symptoms
Physical Exam
-
General: Comfortable; Negative Appears in Distress
HEENT: Negative Oxygen
GI: Soft, Nontender and Nondistended
Genito-urinary: Supra Pubic Tube (clear urine)
Neuro: Awake, Alert and Oriented
[2024-03-31 11:35] LABS: Glucose - Point of Care 156 mg/dl (70-99)
[2024-03-31] MEDS: NOVOLOG FLEXPEN-LOW RESISTANCE 1 UNITS SC (11:38)
--- NOTE | 2024-03-31 14:36 | CM ---
Addendum entered by Paulina Valencia 03/31/24 15:05:
Left [employer] list at bedside and explained to patient and his cousin. Left message for explaining same. Sent out blanket SNF referrals within home zip code area.
Original Note:
Unclamp Sp tube, D/C urethral flaherty. Transitioned to inpatient. Discharge Plan of Care: SNF for STR. Need to get SNF preferences. Will discuss with patient and/or .
[2024-03-31 16:44] LABS: Glucose - Point of Care 139 mg/dl (70-99)
[2024-03-31] MEDS: LIPITOR 40 MG PO (20:41)
[2024-03-31 21:15] LABS: Glucose - Point of Care 145 mg/dl (70-99)
[2024-04-01 07:36] LABS: Blood Urea Nitrogen 63 mg/dl (9-20); Calcium 8.5 mg/dl (8.4-10.2); Carbon Dioxide 19 mmol/L (22-30); Chloride 113 mmol/L (98-107); Estimated Creatinine Clearance 18 ml/min; Glucose 108 mg/dl (70-99); Potassium 3.7 mmol/L (3.5-5.1); Sodium 140 mmol/L (135-145); eGFR 18.07
[2024-04-01 07:40] VITALS: BP 135/63
[2024-04-01 07:46] LABS: % Basophils 0.5 % (0-2); % Eosinophils 6.1 % (0-6); % Immature Granulocytes 0.4 % (0-0.5); % Lymphocytes 23.5 % (20.5-51.1); % Monocytes 6.5 % (1.7-9.3); Absolute Eosinophils 0.4 10^3/uL (0-0.7); Absolute Lymphocytes 1.3 10^3/uL (1.2-3.4); Absolute Monocytes 0.4 10^3/uL (0.1-0.6); Absolute Neutrophils 3.6 10^3/uL (1.4-6.5); Hematocrit 22.4 % (39.0-52.0); Hemoglobin 7.6 g/dL (13.0-18.0); Mean Corp Hgb Conc. 33.9 g/dL (33.0-37.0); Mean Corpuscular Hgb 30.6 pg (27.0-31.0); Mean Corpuscular Volume 90.3 fL (80.0-94.0); Mean Platelet Volume 10.5 fL (7.4-10.4); Nucleated Red Blood Cells % 0 % (-); Platelet Count 148 10^3/uL (130-400); Red Blood Cell Count 2.48 10^6/uL (4.70-6.10); Red Cell Dist. Width 13.8 % (11.5-14.5); White Blood Cell Count 5.7 10^3/uL (4.8-10.8)
[2024-04-01 08:06] LABS: Glucose - Point of Care 118 mg/dl (70-99)
[2024-04-01] MEDS: NOVOLOG FLEXPEN-LOW RESISTANCE SC ×3 (08:18→16:44)
[2024-04-01] MEDS: COLACE 100 MG PO ×2 (08:41→19:54)
[2024-04-01] MEDS: NEURONTIN 100 MG PO ×3 (08:41→21:03)
[2024-04-01] MEDS: BUMEX 2 MG PO (08:41)
[2024-04-01] MEDS: ZOLOFT 100 MG PO (08:41)
[2024-04-01] MEDS: KEPPRA 500 MG PO ×2 (08:41→19:54)
[2024-04-01] MEDS: ROCALTROL 0.25 MCG PO (08:41)
[2024-04-01] MEDS: VITAMIN D3 (cholecalciferol) 50 MCG PO (08:42)
[2024-04-01] MEDS: SODIUM BICARBONATE 1300 MG PO ×3 (08:42→21:02)
[2024-04-01] MEDS: ROCEPHIN 1000 MG IV (10:29)
[2024-04-01] MEDS: STERILE WATER FOR INJECTION 10 ML IV (10:29)
--- NOTE | 2024-04-01 10:32 | CM ---
Addendum entered by Rebecca Garces 04/01/24 16:26:
IMM form left for patient in room. Patient nursing to call patient and confirm discharge with physician
Addendum entered by Rebecca Garces 04/01/24 16:04:
Patient indicated she would like to have patient go to [facility] in [place] and CM called to Olive at [facility] and she indicated that patient would be welcome. Please call [phone]/fax [phone]. CM updated patient nursing and will
complete documentation for medical necessity forms.
Plan; transfer to [facility]
Original Note:
Patient for discharge today, CM spoke with via phone. [facility] does not have a bed, nor does [facility] or [facility] today. Patient accepted to [facility], [facility] and [facility]. Patient declined [facility] and [facility]. Patient
requested call back from nursing to review options. CM requested her to call [facility] to assess if that would work for her and patient. CM will continue to follow for discharge planning needs.
Plan; SNF pending acceptance/bed availability
--- NOTE | 2024-04-01 11:24 | W.PN.URO.CBU ---
Today's Communication / Plan
-
urethral cath removed- sp tube to drainage
Assessment / Plan
-
s/p sp tube placement complicated by hematuria
returned to OR 03/28 for cystoscopy and clot evacuation
Hematuria resolved
CBI clamped 03/29 with clear urine since
HGB 7 on Sunday s/p 1 unit transfused - Trend HGB
Appreciate hospitalist recommendations
CM for rehab placement/home care
PT/OT
sp tube unplugged- will observe
hold eliquis for now
depending on next 24hrs- will decide on outpt plan- HH vs SNIF
Diagnosis
-
Date of Service: April 01, 2024
-
Patient Diagnosis:
urinary retention
Post Op Day:
sp tube placement 03/27
clot evacuation 03/28
Subjective
-
pt comfortable
urine clear
minimal drainage around sp tube site- appears to be lysing hematoma
anemic- but stable
Objective
-
Vital Signs
Temp Pulse Resp BP Pulse Ox
97.9 F 53 20 135/63 98
04/01/24 07:40 04/01/24 07:40 04/01/24 07:40 04/01/24 07:40 04/01/24 07:40
Intake and Output
03/31/24 04/01/24 04/02/24
06:59 06:59 06:59
Intake Total 3790 / 3790 985 / 985
Output Total 1600 / 1600 2750 / 2750
Balance 2190 / 2190 -1765 / -1765
Intake:
Oral fluids 1440 / 1440 800 / 800
IV fluids (Total) 1850 / 1850 175 / 175
IV piggybacks
Blood products 250 / 250
Blood Product Amount Infused ( 250 / 250
mL)
Packed Rbc Leukoreduced Unit 250 / 250
[id number]
Output:
Urine, Flaherty 1600 / 1600 2750 / 2750
Laboratory Results
04/01/24 06:46
04/01/24 06:46
Physical Exam
-
General - no acute distress
Abdomen - soft, non-tender, sp tube in place
Genitalia - normal- flahrety removed
[2024-04-01 12:06] LABS: Glucose - Point of Care 123 mg/dl (70-99)
--- NOTE | 2024-04-01 13:56 | W.PN.HOSP.TC ---
Today's Communication/Plan
-
monitor hbg level, drifted down today
continue eliquis
discharge planning
Assessment / Plan
Assessment / Plan
Acute blood loss anemia due to hematuria and exacerbated by Eliquis:
-h/o BPH s/p TURP
-h/o Urinary retention s/p suprapubic catheter on 03/27/24
-03/28/24 patient started having new hematuria and was started on CBI
-s/p cystoscopy with clot evacuation 03/28/24
-Eliquis on hold
-currently on prophylactic Rocephin, currently without evidence of infection
-got 1 u prbc yesterday, hbg 7.8, f/u level
Essential hypertension:
-hypotensive O/N 03/28/24-03/29/24, received Midodrine 5mg, 250cc NS
-currently on maintenance IV fluids
CKD4
AG Metabolic acidosis
-Patient have presumed diabetic nephropathy and has been followed by nephrology in outpatient basis
-Patient have left arm AV fistula performed on 02/15/24 for potential need HD in the future
-Cr at baseline
-cont PO bicarb
-resume back on bumex
Other problems:
DM2: a1c 6.0, SSI/accuchecks.
h/o CVA with residual right-sided weakness: cont statin, Eliquis on hold
h/o mechanical fall
PAF: Eliquis on hold with ABLA
LEXIS
HLD
Chronic ambulatory dysfunction
h/o R femoral neck fracture
h/o BPH s/p TURP
FULL/SCDs
Anticipated Discharge: Within 24 hours
Subjective/Interval History
-
Date of Service: April 01, 2024
no problems overnight
no reported hematuria.
Objective Data
-
Labs:
Laboratory Results
04/01/24
06:46
WBC 5.7
Hgb 7.6 L
Hct 22.4 L
Plt Count 148 D
Sodium 140
Potassium 3.7
Chloride 113 H
Carbon Dioxide 19 L
BUN 63 H
Creatinine 3.4 H
Glucose 108 H
Calcium 8.5
Vital Signs:
Vital Signs
Temp Pulse Resp BP Pulse Ox
97.9 F 53 20 135/63 98
04/01/24 07:40 04/01/24 07:40 04/01/24 07:40 04/01/24 07:40 04/01/24 07:40
I&O
03/31/24 04/01/24 04/02/24
06:59 06:59 06:59
Intake Total 3790 / 3790 985 / 985
Output Total 1600 / 1600 2750 / 2750
Balance 2190 / 2190 -1765 / -1765
Review of Systems
-
Respiratory: Reports No Symptoms
Cardiac: Reports No Symptoms
Abdomen/GI: Reports No Symptoms
Physical Exam
-
General: Comfortable; Negative Appears in Distress
HEENT: Negative Oxygen
GI: Soft, Nontender and Nondistended
Genito-urinary: Supra Pubic Tube (clear urine)
Neuro: Awake, Alert and Oriented
[2024-04-01 14:28] VITALS: BP 147/68; BP 154/68; PULSE 61; O2SAT 99
[2024-04-01 15:41] VITALS: BP 130/60
[2024-04-01 16:43] LABS: Glucose - Point of Care 129 mg/dl (70-99)
[2024-04-01] MEDS: LIPITOR 40 MG PO (21:03)
[2024-04-01 21:09] LABS: Glucose - Point of Care 184 mg/dl (70-99)
[2024-04-01 23:27] VITALS: BP 145/73
[2024-04-02 07:00] VITALS: BP 152/68
[2024-04-02 07:37] LABS: Glucose - Point of Care 125 mg/dl (70-99)
[2024-04-02] MEDS: NOVOLOG FLEXPEN-LOW RESISTANCE SC ×3 (07:37→16:36)
--- NOTE | 2024-04-02 07:38 | W.PN.URO.CBU ---
Today's Communication / Plan
-
discharge when dispo arranged
Assessment / Plan
-
s/p sp tube placement complicated by hematuria
returned to OR 03/28 for cystoscopy and clot evacuation
Hematuria resolved
CBI clamped 03/29 with clear urine since
HGB 7 on Sunday s/p 1 unit transfused - Trend HGB
Appreciate hospitalist recommendations
PT/OT
sp tube unplugged- draining well
hold eliquis for now- plan to resume in 5 days
PT IS READY FOR DISCHARGE- WILL CONFER WITH CASE MANAGEMENT AND REGARDING HOME VS SNIF PT HAS NOW BEEN IN HOSPITAL FOR > 3 DAYS
Diagnosis
-
Date of Service: April 02, 2024
-
Patient Diagnosis:
urinary retention
Post Op Day:
sp tube placement 03/27
clot evacuation 03/28
Subjective
-
pt stable overnight
urine clear- minimal drainage from sp tube site
some loose stools this am
Objective
-
Vital Signs
Temp Pulse Resp BP Pulse Ox
98.4 F 58 16 145/73 99
04/01/24 23:27 04/01/24 23:27 04/01/24 23:27 04/01/24 23:27 04/01/24 23:27
Intake and Output
04/01/24 04/02/24 04/03/24
06:59 06:59 06:59
Intake Total 985 / 985 2400 / 2400
Output Total 2750 / 2750 2550 / 2550
Balance -1765 / -1765 -150 / -150
Intake:
Oral fluids 800 / 800 2400 / 2400
IV fluids (Total) 175 / 175
IV piggybacks
Output:
Urine, Flaherty 2750 / 2750 1949 / 1949
Suprapubic output 600 / 600
Laboratory Results
04/01/24 06:46
04/01/24 06:46
Review of Systems
-
Constitutional: Fatigue
Respiratory: No Symptoms
Cardiac: No Symptoms
Abdomen/GI: No Symptoms
Physical Exam
-
General - no acute distress
Abdomen - soft, non-tender, sp tube draining clear urine- minimal drainage from site
Genitalia - normal- flaherty out
[2024-04-02] MEDS: SODIUM BICARBONATE 1300 MG PO ×3 (08:05→21:06)
[2024-04-02] MEDS: KEPPRA 500 MG PO ×2 (08:05→20:22)
[2024-04-02] MEDS: BUMEX 2 MG PO (08:05)
[2024-04-02] MEDS: ROCALTROL 0.25 MCG PO (08:06)
[2024-04-02] MEDS: NEURONTIN 100 MG PO ×3 (08:06→21:05)
[2024-04-02] MEDS: COLACE PO (08:06)
[2024-04-02] MEDS: VITAMIN D3 (cholecalciferol) 50 MCG PO (08:06)
[2024-04-02] MEDS: ZOLOFT 100 MG PO (08:06)
[2024-04-02] MEDS: FLORASTOR 250 MG PO ×2 (08:06→20:22)
[2024-04-02 09:42] LABS: Hematocrit 24.3 % (39.0-52.0); Hemoglobin 8.4 g/dL (13.0-18.0); Mean Corp Hgb Conc. 34.6 g/dL (33.0-37.0); Mean Corpuscular Hgb 30.4 pg (27.0-31.0); Mean Platelet Volume 10.5 fL (7.4-10.4); Platelet Count 152 10^3/uL (130-400); Red Blood Cell Count 2.76 10^6/uL (4.70-6.10); Red Cell Dist. Width 14.2 % (11.5-14.5); White Blood Cell Count 5.1 10^3/uL (4.8-10.8)
[2024-04-02] MEDS: STERILE WATER FOR INJECTION 10 ML IV (10:40)
[2024-04-02] MEDS: ROCEPHIN 1000 MG IV (10:40)
[2024-04-02 11:29] LABS: Glucose - Point of Care 131 mg/dl (70-99)
--- NOTE | 2024-04-02 13:02 | W.PN.HOSP.TC ---
Today's Communication/Plan
-
d/c planning for rehab
Assessment / Plan
Assessment / Plan
Acute blood loss anemia due to hematuria and exacerbated by Eliquis:
-h/o BPH s/p TURP
-h/o Urinary retention s/p suprapubic catheter on 03/27/24
-03/28/24 patient started having new hematuria and was started on CBI
-s/p cystoscopy with clot evacuation 03/28/24
-Eliquis on hold. resume post urology clearance.
-currently on prophylactic Rocephin, currently without evidence of infection
-got 1 u prbc on weekend, hbg stable 8.4 today
Essential hypertension:
-hypotensive O/N 03/28/24-03/29/24, received Midodrine 5mg, 250cc NS
-stopped further IVF
CKD4
AG Metabolic acidosis
-Patient have presumed diabetic nephropathy and has been followed by nephrology in outpatient basis
-Patient have left arm AV fistula performed on 02/15/24 for potential need HD in the future
-Cr at baseline
-cont PO bicarb
-resumed back on Bumex
Other problems:
DM2: a1c 6.0, SSI/AccuCheck.
h/o CVA with residual right-sided weakness: cont statin, Eliquis on hold
h/o mechanical fall
PAF: Eliquis on hold with ABLA
LEXIS
HLD
Chronic ambulatory dysfunction
h/o R femoral neck fracture
h/o BPH s/p TURP
FULL/SCDs
Anticipated Discharge: Within 24 hours
Subjective/Interval History
-
Date of Service: April 02, 2024
Denies having any issues overnight
Clear urine
Objective Data
-
Labs:
Laboratory Results
04/02/24
09:10
WBC 5.1
Hgb 8.4 L
Hct 24.3 L
Plt Count 152
Vital Signs:
Vital Signs
Temp Pulse Resp BP Pulse Ox
98.2 F 56 18 152/68 97
04/02/24 07:00 04/02/24 07:00 04/02/24 07:00 04/02/24 07:00 04/02/24 07:00
I&O
04/01/24 04/02/24 04/03/24
06:59 06:59 06:59
Intake Total 985 / 985 2400 / 2400
Output Total 2750 / 2750 2550 / 2550
Balance -1765 / -1765 -150 / -150
Review of Systems
-
Respiratory: Reports No Symptoms
Cardiac: Reports No Symptoms
Abdomen/GI: Reports No Symptoms
Physical Exam
-
General: Comfortable; Negative Appears in Distress
HEENT: Negative Oxygen
GI: Soft, Nontender and Nondistended
Genito-urinary: Supra Pubic Tube (clear urine)
Neuro: Awake, Alert and Oriented
--- NOTE | 2024-04-02 14:40 | CM ---
Patient seen at bedside with patient . Patient for transfer to [facility] tomorrow. IMM completed and signed form on chart. Please call [phone]/fax [phone] for Klarissa Davila in admissions. CM will continue to follow for discharge planning
needs.
Plan; SNF tomorrow.
[2024-04-02 16:05] VITALS: BP 147/67
[2024-04-02 16:35] LABS: Glucose - Point of Care 127 mg/dl (70-99)
[2024-04-02] MEDS: COLACE 100 MG PO (20:22)
[2024-04-02] MEDS: LIPITOR 40 MG PO (21:09)
[2024-04-02 21:10] LABS: Glucose - Point of Care 170 mg/dl (70-99)
[2024-04-02 23:19] VITALS: BP 161/72
[2024-04-03 07:27] LABS: Glucose - Point of Care 96 mg/dl (70-99)
[2024-04-03 07:38] VITALS: BP 153/72
--- NOTE | 2024-04-03 08:40 | W.PN.URO.CBU ---
Today's Communication / Plan
-
discharge
Assessment / Plan
-
s/p sp tube placement complicated by hematuria
returned to OR 03/28 for cystoscopy and clot evacuation
Hematuria resolved
CBI clamped 03/29 with clear urine since
HGB 7 on Sunday s/p 1 unit transfused - Trend HGB
Appreciate hospitalist recommendations
PT/OT
sp tube unplugged- draining well
hold eliquis for now- plan to resume in 5 days
PT IS READY FOR DISCHARGE-
Diagnosis
-
Date of Service: April 03, 2024
-
Patient Diagnosis:
urinary retention
Post Op Day:
sp tube placement 03/27
clot evacuation 03/28
Subjective
-
pt stable
hgb stable
urine clear
sp tube site d/i
Objective
-
Vital Signs
Temp Pulse Resp BP Pulse Ox
98.1 F 56 19 153/72 98
04/03/24 07:38 04/03/24 07:38 04/03/24 07:38 04/03/24 07:38 04/03/24 07:38
Intake and Output
04/02/24 04/03/24 04/04/24
06:59 06:59 06:59
Intake Total 2400 / 2400 1680 / 1680
Output Total 2550 / 2550 2525 / 2525
Balance -150 / -150 -845 / -845
Intake:
Oral fluids 2400 / 2400 1680 / 1680
Output:
Urine, Zaragoza 1950 / 1950 750 / 750
Urine, Voided 1525 / 1525
Suprapubic output 600 / 600 250 / 250
Laboratory Results
04/01/24 06:46
Review of Systems
-
Constitutional: No Symptoms
Respiratory: No Symptoms
Cardiac: No Symptoms
Abdomen/GI: No Symptoms
Physical Exam
-
General - no acute distress
Abdomen - soft, non-tender, sp tube site d/i
Genitalia - normal
--- NOTE | 2024-04-03 08:41 | W.DS.TRANS ---
DC Summary - [employer] Consultant
-
Discharge Instructions:
Sleep Apnea Risk Intermediate
Discharge Diagnosis/Procedures you had a supra-pubic tube placement
Diet No restrictions
Activity No strenuous activity
Additional Activity no lifting over 10lbs for 7 days
Driving Restrictions Not until seen by your Dr
Bathing Restrictions OK to Shower
Wound Care change sp tube dressing each day and apply
neosporin to tube insertion site
Instructions:
Stand-Alone Forms:
Changes to Home Medications: No
Discharge Medications:
DC Medications w/original date entered in [facility]
bumetanide 1 mg tablet 2 mg PO DAILY Fluid retention/Swelling 09/29/10
sertraline 100 mg tablet 100 mg PO DAILY Depression 07/10/22
atorvastatin 40 mg tablet 40 mg PO HS Hyperlipidemia 07/11/22
calcitriol 0.25 mcg capsule 0.25 mcg PO DAILY Supplement 07/11/22
apixaban 2.5 mg tablet (Eliquis) 2.5 mg PO BID 12/14/23
cholecalciferol (vitamin D3) 50 mcg (2,000 unit) capsule (Vitamin D3) 50 mcg PO DAILY 12/14/23
gabapentin 100 mg capsule 100 mg PO TID 12/14/23
levetiracetam 500 mg tablet (Keppra) 500 mg PO BID 12/14/23
sodium bicarbonate 650 mg tablet 650 mg PO TID 02/07/24
oxycodone 5 mg tablet 5 mg PO Q4HPRN PRN moderate pain #7 tabs 02/15/24
cephalexin 500 mg capsule 500 mg PO BID #14 caps 03/28/24
Home Medication Changes
Pending Results: No
[2024-04-03] MEDS: NOVOLOG FLEXPEN-LOW RESISTANCE SC (09:13)
[2024-04-03] MEDS: BUMEX 2 MG PO (09:16)
[2024-04-03] MEDS: KEPPRA 500 MG PO (09:17)
[2024-04-03] MEDS: FLORASTOR 250 MG PO (09:17)
[2024-04-03] MEDS: COLACE 100 MG PO (09:17)
[2024-04-03] MEDS: NEURONTIN 100 MG PO (09:17)
[2024-04-03] MEDS: SODIUM BICARBONATE 1300 MG PO (09:18)
[2024-04-03] MEDS: ZOLOFT 100 MG PO (09:18)
[2024-04-03] MEDS: VITAMIN D3 (cholecalciferol) 50 MCG PO (09:18)
[2024-04-03] MEDS: ROCALTROL 0.25 MCG PO (09:18)
[2024-04-03] MEDS: ROCEPHIN 1000 MG IV (09:29)
[2024-04-03] MEDS: STERILE WATER FOR INJECTION 10 ML IV (09:30)
--- NOTE | 2024-04-03 09:57 | CM ---
CM reviewed patient's chart. Patient appears to be ready for discharge today. Both transportation sheets were completed and placed on patient's chart. Patient's PASSR and IMM were completed yesterday.
Above discussed with RN and equal opportunity assistant. CM asked if transport time could be communicated to CM so it could be communicated to Olive at [facility].
DISCHARGE DISPOSITION:
Transport to [facility] in [place].
[2024-04-03 10:15] VITALS: PULSE 59; O2SAT 98
[2024-04-03 10:33] LABS: Mean Corp Hgb Conc. 33.3 g/dL (33.0-37.0); Mean Corpuscular Hgb 29.7 pg (27.0-31.0); Mean Corpuscular Volume 89.2 fL (80.0-94.0); Platelet Count 163 10^3/uL (130-400); Red Blood Cell Count 2.69 10^6/uL (4.70-6.10); White Blood Cell Count 5.6 10^3/uL (4.8-10.8)
--- NOTE | 2024-04-03 11:21 | CM ---
Patient updated and will visit patient at SNF later today. CM will continue to follow for discharge planning needs.
--- NOTE | 2024-04-03 14:45 | W.PN.HOSP.TC ---
Today's Communication/Plan
-
discharged to rehab
Assessment / Plan
Assessment / Plan
Acute blood loss anemia due to hematuria and exacerbated by Eliquis:
-h/o BPH s/p TURP
-h/o Urinary retention s/p suprapubic catheter on 03/27/24
-03/28/24 patient started having new hematuria and was started on CBI
-s/p cystoscopy with clot evacuation 03/28/24
-Eliquis on hold. resume post urology clearance.
-currently on prophylactic Rocephin, currently without evidence of infection
-got 1 u prbc on weekend, hbg stable at 8
Essential hypertension:
-hypotensive O/N 03/28/24-03/29/24, received Midodrine 5mg, 250cc NS
-stopped further IVF
CKD4
AG Metabolic acidosis
-Patient have presumed diabetic nephropathy and has been followed by nephrology in outpatient basis
-Patient have left arm AV fistula performed on 02/15/24 for potential need HD in the future
-Cr at baseline
-cont PO bicarb
-resumed back on Bumex
Other problems:
DM2: a1c 6.0, SSI/AccuCheck.
h/o CVA with residual right-sided weakness: cont statin, Eliquis on hold
h/o mechanical fall
PAF: Eliquis on hold with ABLA
LEXIS
HLD
Chronic ambulatory dysfunction
h/o R femoral neck fracture
h/o BPH s/p TURP
FULL/SCDs
Anticipated Discharge: Today
Subjective/Interval History
-
Date of Service: April 03, 2024
no new issues
Objective Data
-
Labs:
Laboratory Results
04/03/24
10:18
WBC 5.6
Hgb 8.0 L
Hct 24.0 L
Plt Count 163
Vital Signs:
Vital Signs
Temp Pulse Resp BP Pulse Ox
98.1 F 56 19 153/72 98
04/03/24 07:38 04/03/24 07:38 04/03/24 07:38 04/03/24 07:38 04/03/24 07:38
I&O
04/02/24 04/03/24 04/04/24
06:59 06:59 06:59
Intake Total 2400 / 2400 1680 / 1680 480 / 480
Output Total 2550 / 2550 2525 / 2525 1000 / 1000
Balance -150 / -150 -845 / -845 -520 / -520
Review of Systems
-
Respiratory: Reports No Symptoms
Cardiac: Reports No Symptoms
Abdomen/GI: Reports No Symptoms
Physical Exam
-
General: Comfortable; Negative Appears in Distress
HEENT: Negative Oxygen
GI: Soft, Nontender and Nondistended
Genito-urinary: Supra Pubic Tube (clear urine)
Neuro: Awake, Alert and Oriented
== END 2024-04-03 12:10 | DRG 908 ==
LOC: PACUI 15:00
PROVIDERS: Internal Medicine; Nurse Practitioner Gerontology; Urology; ADMITTING PHYSICIAN Specialist; OTHER PHYSICIAN Hospitalist
PROC: 0TCB8ZZ Extirpation of Matter from Bladder, Via Natural or Artificial Opening Endoscopic (ICD-10-PCS; 2024-03-27)
PROC: 0TPBX0Z Removal of Drainage Device from Bladder, External Approach (ICD-10-PCS; 2024-03-27)
PROC: 0T9B70Z Drainage of Bladder with Drainage Device, Via Natural or Artificial Opening (ICD-10-PCS; 2024-03-27)
PROC: 0TJB8ZZ Inspection of Bladder, Via Natural or Artificial Opening Endoscopic (ICD-10-PCS; 2024-03-27)
PROC: 0T9B00Z Drainage of Bladder with Drainage Device, Open Approach (ICD-10-PCS; 2024-03-27)
PROC: 30233N1 Transfusion of Nonautologous Red Blood Cells into Peripheral Vein, Percutaneous Approach (ICD-10-PCS; 2024-03-30)
DX: N99.820 Postprocedural hemorrhage of a genitourinary system organ or structure following a genitourinary system procedure (principal); D62 Acute posthemorrhagic anemia; I69.351 Hemiplegia and hemiparesis following cerebral infarction affecting right dominant side; N18.4 Chronic kidney disease, stage 4 (severe); S37.22XA Contusion of bladder, initial encounter; D68.32 Hemorrhagic disorder due to extrinsic circulating anticoagulants; E87.20 Acidosis, unspecified; E11.22 Type 2 diabetes mellitus with diabetic chronic kidney disease; I12.9 Hypertensive chronic kidney disease with stage 1 through stage 4 chronic kidney disease, or unspecified chronic kidney disease; N30.81 Other cystitis with hematuria; I95.9 Hypotension, unspecified; Y83.8 Other surgical procedures as the cause of abnormal reaction of the patient, or of later complication, without mention of misadventure at the time of the procedure; T45.515A Adverse effect of anticoagulants, initial encounter; N32.89 Other specified disorders of bladder; N31.9 Neuromuscular dysfunction of bladder, unspecified; R33.9 Retention of urine, unspecified; I48.0 Paroxysmal atrial fibrillation; G47.33 Obstructive sleep apnea (adult) (pediatric); E78.5 Hyperlipidemia, unspecified; Z79.01 Long term (current) use of anticoagulants; Z79.899 Other long term (current) drug therapy; Z87.81 Personal history of (healed) traumatic fracture; Z86.16 Personal history of COVID-19; Z87.891 Personal history of nicotine dependence; Z90.79 Acquired absence of other genital organ(s); Z91.81 History of falling; Z88.8 Allergy status to other drugs, medicaments and biological substances
CPT/HCPCS: 80048; 82962; 83036; 83735; 85014; 85018; 85025; 85027; 85610; 85730; 86850; 86900; 86901; 86920; 97110; 97116; 97162; 97166; 97530; P9016

== ENCOUNTER 2024-04-30 21:57 | Inpatient (IN) | payer MEDICARE, SELFPAY ==
[2024-04-30] VITALS (16 sets, daily range): BP systolic 144–172; BP diastolic 55–88; PULSE 62–92; O2SAT 97; BMI 29.3
--- NOTE | 2024-04-30 11:09 | ED.GENMED ---
History of Present Illness
<Christel Charles PA-C - Last Filed: 04/30/24 20:57>
General
Chief Complaint: Weakness
Source: patient
Exam Limitations: none
Time Seen by Provider: 04/30/24 11:08
Nursing documentation reviewed up to this point in time: agreed with
History of Present Illness
History of Present Illness:
73 y/o male with a PMH of dementia, CAD, HLP, HTN, CKD, prior CVA with chronic left sided weakness, parkinson's with tremors, presenting to the emergency department today with concerns of ongoing weakness. Of note, patient was recently hospitalized
here at [facility] in order to have a suprapubic catheter placed for ongoing BPH which progressed to neurogenic bladder. Patient was then transferred to [facility] nursing [facility] where he stayed for multiple weeks and was
discharged yesterday to home care with his . Patient states that since discharge, he reports issues with his balance and he said that his was concerned so she called EMS. I did speak to his on the phone who reports that she has been
having difficulty getting a home care nurse to come out to the house and aid in his care. She reports that with his chronic balance issues from his prior stroke, he will often stumble and have difficulty with ambulation. reports that since she
has been home, he has lost his balance and she is caught him in her arms and she has had trouble getting him back up on his feet so she called EMS. Patient reports that he did not fall to the ground did not hurt himself. He denies any pain in his
extremities, denies any buttocks or hip pain. Patient denies chest pain or shortness of breath. Patient does note some blurry vision but patient states that this is a chronic issue and has had this for years. Patient denies any visual loss.
Patient denies any headaches.
Past History
<Christel Charles PA-C - Last Filed: 04/30/24 20:57>
Past History
ED Past Medical History: Arrthythmia, CAD (Mild, nonobstructive coronary artery disease.), HTN, Hypercholesterolemia, IDDM, Other (Renal insufficiency) and Other (Sleep apnea, chronic LBP)
ED Past Surgical History: Cardiac (Cardiac catheterizations revealing minimal coronary artery disease.) and Urological (TURP)
Social History
Tobacco: Non-smoker
Alcohol: None
Drug: None
Personal:
Living: with family
Employment: Retired
Family History
Family History: Other (reviewed and Noncontributory)
Review of Systems
<Christel Charles PA-C - Last Filed: 04/30/24 20:57>
Review of Systems
All Other Systems: ROS reviewed and negative except as documented in HPI and ROS
Phy Exam
<Christel Charles PA-C - Last Filed: 04/30/24 20:57>
Physical Exam
Physical Exam:
General: Patient is well appearing and in no acute distress; non-toxic
Skin: Warm and dry, no rashes or lesions
Head: Normocephalic, atraumatic
Eyes: Sclera non-icteric. EOMs intact. No nystagmus. PERRLA. Visual field testing intact.
Cardiac: Regular rate and rhythm, no murmur
Peripheral Vascular: No lower extremity swelling or edema
Pulm: Normal respiratory effort, no wheezes, rales, or rhonchi
Abdomen: No abdominal tenderness to palpation
Neuro: CN II-XII intact, no focal neurologic deficits. Normal jtiq-ah-wqox, finger-nose testing.
Psychiatric: Appropriate mood and affect.
Course
<Christel Charles PA-C - Last Filed: 04/30/24 20:57>
Orders/Labs/Results
Orders:
Orders
04/30/24 11:13
Electrocardiogram (*1) Urgent
Reason for Study: Vertigo / Dizzy
EKG- Treatment ONCE
04/30/24 11:46
Case Management Consult ONCE
Case Management Consult: VN/Home Care
Occupational Therapy Consult [Ot Eval And Treat] Urgent
Physical Therapy Consult [Pt Eval And Treat] Urgent
Activity Level: With Assistance
04/30/24 11:53
Complete Blood Count/With Diff Urgent
Comprehensive Metabolic Panel Urgent
Magnesium Urgent
04/30/24 12:37
Potassium Chloride [KCl] 40 meq PO NOW STA
04/30/24 15:43
IV Insert/Care/Rem.- Treatment PRN
04/30/24 17:04
Potassium Urgent
Abnormal Lab Results
04/30/24 04/30/24
11:53 17:04
RBC 3.15 L 10^6/uL
(4.70-6.10)
Hgb 9.7 L g/dL
(13.0-18.0)
Hct 28.8 L %
(39.0-52.0)
Absolute Lymphs (auto) 1.1 L 10^3/uL
(1.2-3.4)
Lymphocytes % 19.1 L %
(20.5-51.1)
Potassium 2.8 L mmol/L 2.8 L mmol/L
(3.5-5.1) (3.5-5.1)
BUN 51 H mg/dl
(9-20)
Creatinine 3.4 H mg/dL
(0.7-1.3)
AST 16 L U/L
(17-59)
Total Protein 5.9 L g/dl
(6.3-8.2)
Albumin 3.3 L g/dl
(3.5-5.0)
04/30/24 11:53
04/30/24 17:04
Vital Signs
Initial and Last Documented VS:
Initial Vital Signs
Temp Pulse Resp BP Pulse Ox
98.7 F 52 16 156/70 99
04/30/24 10:58 04/30/24 10:58 04/30/24 10:58 04/30/24 10:58 04/30/24 10:58
Last Documented Vital Signs
Temp Pulse Resp BP Pulse Ox
98.7 F 64 19 159/65 97
04/30/24 10:58 04/30/24 20:45 04/30/24 20:45 04/30/24 20:00 04/30/24 12:00
<Monica Zraagoza MD - Last Filed: 04/30/24 15:46>
Orders/Labs/Results
Orders:
Orders
04/30/24 11:13
Electrocardiogram (*1) Urgent
Reason for Study: Vertigo / Dizzy
EKG- Treatment ONCE
04/30/24 11:46
Case Management Consult ONCE
Case Management Consult: VN/Home Care
Occupational Therapy Consult [Ot Eval And Treat] Urgent
Physical Therapy Consult [Pt Eval And Treat] Urgent
Activity Level: With Assistance
04/30/24 11:53
Complete Blood Count/With Diff Urgent
Comprehensive Metabolic Panel Urgent
Magnesium Urgent
04/30/24 12:37
Potassium Chloride [KCl] 40 meq PO NOW STA
04/30/24 15:43
IV Insert/Care/Rem.- Treatment PRN
04/30/24 17:04
Potassium Urgent
Abnormal Lab Results
04/30/24 04/30/24
11:53 17:04
RBC 3.15 L 10^6/uL
(4.70-6.10)
Hgb 9.7 L g/dL
(13.0-18.0)
Hct 28.8 L %
(39.0-52.0)
Absolute Lymphs (auto) 1.1 L 10^3/uL
(1.2-3.4)
Lymphocytes % 19.1 L %
(20.5-51.1)
Potassium 2.8 L mmol/L 2.8 L mmol/L
(3.5-5.1) (3.5-5.1)
BUN 51 H mg/dl
(9-20)
Creatinine 3.4 H mg/dL
(0.7-1.3)
AST 16 L U/L
(17-59)
Total Protein 5.9 L g/dl
(6.3-8.2)
Albumin 3.3 L g/dl
(3.5-5.0)
04/30/24 11:53
04/30/24 17:04
Vital Signs
Initial and Last Documented VS:
Initial Vital Signs
Temp Pulse Resp BP Pulse Ox
98.7 F 52 16 156/70 99
04/30/24 10:58 04/30/24 10:58 04/30/24 10:58 04/30/24 10:58 04/30/24 10:58
Last Documented Vital Signs
Temp Pulse Resp BP Pulse Ox
98.7 F 64 19 159/65 97
04/30/24 10:58 04/30/24 20:45 04/30/24 20:45 04/30/24 20:00 04/30/24 12:00
Rodneylt;Christel Charles PA-C - Last Filed: 04/30/24 20:57>
MDM/Problems Addressed
Differential Diagnosis Includes:
Differentials include ambulatory dysfunction, parkinson's progression, failure to thrive, chronic kidney disease
MDM/Problems Addressed:
Ambulatory dysfunction, weakness:
73 y/o male with a PMH of dementia, CAD, HLP, HTN, CKD, prior CVA with chronic left sided weakness, parkinson's with tremors, presenting to the emergency department today with concerns of ongoing weakness. Of note, patient was recently hospitalized
here at [facility] in order to have a suprapubic catheter placed for ongoing BPH which progressed to neurogenic bladder. Patient was then transferred to [facility] senior living [facility] where he stayed for multiple weeks and was
discharged yesterday to home care with his .
reports that he has had 2 episodes where he almost fell and she had to catch him. feels that she cannot adequately care for him herself at home and has not been able to get home nursing. Of note, patient also noted blurry vision from
time to time but he states this is a chronic issue. On exam, he is well-appearing, he has no focal neurologic deficits. Visual field testing is intact, he has no nystagmus. He is evaluated by physical therapy and Occupational Therapy who feel
that patient needs further rehab and care at a senior living facility. Case management discussed this plan with however expresses significant concerns regarding financial planning for this level of care. Additionally, on lab work
patient was noted to be hypokalemic to 2.8. His potassium was repleted orally. Of note, patient does take a diuretic known to cause hypokalemia and he is not take oral potassium supplementation. Case management was able to obtain a bed at [facility]
again however, we were not able to get a hold of or son for consent. Case management discussed palliative care involvement with . Considering patient's ongoing issues regarding placement and his severe hypokalemia, patient will be admitted
for observation.
Chronic conditions affecting care:
dementia, parkinson's disease, chronic weakness from prior CVA
<Christel Charles PA-C - Last Filed: 04/30/24 20:57>
*Pulse Oximetry
Patient hypoxic: no
*EKG
Interpreted by ED Provider?: Yes
EKG Intrepretation Date: 04/30/24
Interpretation: abnormal
Heart Rate: 57
Rate: bradycardiac
Rhythm: sinus
Interval: first degree heart block
QRS Pattern: normal QRS
Ischemia: no ischemia
*Window Repairer Interpretation
Rate: normal
*Critical Care Note
Total Time (30-74mins, 75-104mins- exclusive of procedures): Not Applicable
Data Reviewed
Review of Other/Old Records Reveals: Records (Reviewed [facility] discharge paperwork, there is documentation of extensive PT and OT eval) and Discharge Summary (Reviewed discharge summary from 04/09/2024, patient had suprapubic catheter placed)
Source: patient and records
Prescriptions/Medications Considered But Not Given:
n/a
Further Testing Considered But Not Given:
n/a
<Christel Charles PA-C - Last Filed: 04/30/24 20:57>
Patient Management
Social determinants of health affecting care: Poor outpatient follow-up
Escalation/DeEscalation of care consider admission/obs:
Admit indicated. Patient referred for admission.
ED Attending Note
<Christel Charles PA-C - Last Filed: 04/30/24 20:57>
-
Portions of this chart may have been created with voice recognition software.� Occasional wrong word or��sound alike� substitutions may have occurred due to the inherent limitations of voice recognition software.
<Monica Zaragoza MD - Last Filed: 04/30/24 15:46>
ED Attending Note
Patient seen and examined by attending physician: Yes
I performed the substantive portion of visit, reviewed & personally made and approve the management plan that is documented in note by myself or UMBERTO.: Yes
ED Attending Note:
73 yr old male with recent d/c from facility, at home with who is unable to care for him, particularly related to his overall weakness. Pt was evaluated by PT/CM here, placement found for a suitable level of care for him, however noted to be
severely hypoK. Of note, pt on Bumex and does not take K supplements. Will replete here, recheck levels, observe overnight. Hx of blurry vision in hx, however pt now denies to me.
Discharge Plan
Departure
Patient Disposition: Admit
Date of Disposition: 04/30/24
Time of Disposition: 16:07
Admit to: Med/Surg
Presentation/result/management discussed w/ accepting MD/DO: Hospitalist
Patient with high blood pressure during this ER visit?: Yes
Condition: Fair
Discharge Problem:
Weakness, Acute hypokalemia
Prescriptions:
No Action
bumetanide 1 MG tablet
2 mg PO DAILY
sertraline 100 mg tablet
100 mg PO DAILY
atorvastatin 40 mg tablet
40 mg PO HS
calcitriol 0.25 mcg capsule
0.25 mcg PO DAILY
levetiracetam [Keppra] 500 mg Tablet
500 mg PO BID
gabapentin 100 mg Capsule
100 mg PO TID
sodium bicarbonate 650 mg Tablet
650 mg PO TID
Eliquis 2.5 mg Tablet
2.5 mg PO BID
Retacrit 2,000 unit/mL Solution
2,000 unit SC WEEKLY
Referrals:
UNKNOWN - PT DOES,NOT KNOW [Family Provider] -
Interventions
Interventions:
*Risk Screen - Suicide Last Done: 04/30/24 11:08
*General Assessment Last Done: 04/30/24 11:08
*Neglect/Abuse Screening Last Done: 04/30/24 11:08
*ED COVID-19 Vaccine History Last Done: 04/30/24 11:08
ED- Cardiac Assessment Last Done: 04/30/24 11:12
ED- Neurological Assessment Last Done: 04/30/24 11:12
ED- Pulmonary Assessment Last Done: 04/30/24 11:12
Discharge Date and Time
Print Language: PORTUGUESE
[2024-04-30 11:59] LABS: % Basophils 0.9 % (0-2); % Eosinophils 4.5 % (0-6); % Immature Granulocytes 0.4 % (0-0.5); % Lymphocytes 19.1 % (20.5-51.1); % Monocytes 8.4 % (1.7-9.3); % Neutrophils 66.7 % (42.2-75.2); Absolute Basophils 0.1 10^3/uL (0-0.2); Absolute Eosinophils 0.3 10^3/uL (0-0.7); Absolute Lymphocytes 1.1 10^3/uL (1.2-3.4); Absolute Monocytes 0.5 10^3/uL (0.1-0.6); Absolute Neutrophils 3.7 10^3/uL (1.4-6.5); Hematocrit 28.8 % (39.0-52.0); Hemoglobin 9.7 g/dL (13.0-18.0); Mean Corp Hgb Conc. 33.7 g/dL (33.0-37.0); Mean Corpuscular Hgb 30.8 pg (27.0-31.0); Mean Corpuscular Volume 91.4 fL (80.0-94.0); Mean Platelet Volume 10.3 fL (7.4-10.4); Nucleated Red Blood Cells % 0 % (-); Platelet Count 160 10^3/uL (130-400); Red Blood Cell Count 3.15 10^6/uL (4.70-6.10); Red Cell Dist. Width 14.2 % (11.5-14.5); White Blood Cell Count 5.6 10^3/uL (4.8-10.8)
[2024-04-30 12:20] LABS: ALT (SGPT) < 10 U/L (0-50); AST (SGOT) 16 U/L (17-59); Albumin 3.3 g/dl (3.5-5.0); Alkaline Phosphatase 84 U/L (38-126); Blood Urea Nitrogen 51 mg/dl (9-20); Calcium 8.7 mg/dl (8.4-10.2); Carbon Dioxide 29 mmol/L (22-30); Chloride 101 mmol/L (98-107); Glucose 97 mg/dl (70-99); Potassium 2.8 mmol/L (3.5-5.1); Sodium 139 mmol/L (135-145); Total Bilirubin 0.5 mg/dl (0.2-1.3); Total Protein 5.9 g/dl (6.3-8.2); eGFR 18.07
[2024-04-30] MEDS: KCL 40 MEQ PO ×2 (12:48→21:28)
--- NOTE | 2024-04-30 14:02 | CM ---
Addendum entered by Alie Hoffman 04/30/24 15:38:
Multiple messages left for patient's spouse encouraging her to make a final decision, [facility] can accept patient today in their skilled facility or other options is home with family assist and [facility], list of caregivers was provided.
Addendum entered by Alie Hoffman 04/30/24 15:06:
manager army had a long conversation with patient's spouse, case coordinator offered multiple options to patient's spouse, including visiting nurses, private duty caregivers, skilled placement again at [facility] however patient' spouse refused
stating that she wanted to take patient home, per patient's spouse she cannot afford a skilled facility. Patient's spouse stated that she has been in touch with [facility].
Original Note:
manager army reviewed patient's chart and met with patient in ED, prior to admission patient lives with spouse in a 2 story home with 2 steps to enter, 16 steps to bed and bathroom, patient was placed at [facility] and left yesterday against
recommendations from facility. case coordinator reached out to patient's spouse and left message no answer, case ai reached out to [facility] to see if they could take patient back.
Pharmacy: [facility]
PCP: Dr. Boles
[2024-04-30 17:19] LABS: Potassium 2.8 mmol/L (3.5-5.1)
--- NOTE | 2024-04-30 21:08 | HPS.HSE ---
Family Physician
-
Family Physician: NOT KNOW UNKNOWN - PT DOES
Chief Complaint
-
weakness
History of Present Illness
Mr. Lui Choudhury is a 73 yo man with hx dementia, paroxysmal afib on Eliquis, CKD IV (with left arm AV fistula 02/15/24 for potential future HD need), DM2, CVA, BPH s/p TURP, urinary retention s/p suprapubic catheter on 03/27/24 (patient admitted
03/27-04/03 discharged to SNF) discharged from SNF yesterday to home care with , brought in today for issues with his balance.
I called who stated that when patient came home yesterday and was going to sleep, she noticed that his right leg was very weak and shakey. His right leg is normally the more stable one (left-sided weakness post stroke). This morning she
emptied his flaherty catheter and then visiting nurse came. When he got up with the walker his legs were very 'wobbly' and he slid down. She again noticed his right leg shaking. She could not get him up and so EMS was called. Patient did not look
in pain after he fell. When asked how he was doing at SNF, told me over past two weeks he has been weak.
He is currently able to tell me that he came in after a fall but cannot elaborate further. Denies chest pain, no shortness of breath, no headache, no nausea or vomiting.
Medical History
Past Medical History
Past Medical History: Reports Other
Additional Past Medical History:
ASCVD / Non-Obstructing Coronary Disease
CVA / TIA
BPH
CKD IV
Hypertension
Documented history of DM-II
Obesity
Past Surgical History: Reports Other
Additional Past Surgical History:
Herniorrhaphy
TURP
Cardiac Cath (no angio / stents)
Social History
Tobacco: Former Smoker
Alcohol: None
Family History
Family History: Not pertinent
Allergies / Home Medications
Allergies reflects when Allergies were last updated in [facility].
Home Medications with original date entered in [facility]
Allergy/Medication List:
Allergies
Allergy/AdvReac Type Severity Reaction Status Date / Time
alcohol Allergy Anaphylaxis Verified 04/30/24 11:02
to beer
Anesthetics - Amide Type - Allergy Unknown Verified 04/30/24 11:02
Select A
dexamethasone [From Decadron] Allergy Hypotension Verified 04/30/24 11:02
tomato Allergy Anaphylaxis Verified 04/30/24 11:02
Home Medications
bumetanide 1 mg tablet 2 mg PO DAILY Fluid retention/Swelling 09/29/10
sertraline 100 mg tablet 100 mg PO DAILY depression/anxiety 07/10/22
atorvastatin 40 mg tablet 40 mg PO HS Hyperlipidemia 07/11/22
calcitriol 0.25 mcg capsule 0.25 mcg PO DAILY Kidney Disease 07/11/22
gabapentin 100 mg capsule 100 mg PO TID pain 12/14/23
levetiracetam 500 mg tablet (Keppra) 500 mg PO BID seizures 12/14/23
sodium bicarbonate 650 mg tablet 650 mg PO TID Supplement 02/07/24
apixaban 2.5 mg tablet (Eliquis) 2.5 mg PO BID Blood Clot Prevention/Tx 04/30/24
epoetin mehreen-epbx 2,000 unit/mL injection solution (Retacrit) 2,000 unit SC WEEKLY anemia 04/30/24
Review of Systems
-
History Source: Patient
A 12 point ROS was completed and negative except as noted: Yes
Physical Exam
Vital Signs
Vital Signs
Temp Pulse Resp BP Pulse Ox
98.7 F 64 19 159/65 97
04/30/24 10:58 04/30/24 20:45 04/30/24 20:45 04/30/24 20:00 04/30/24 12:00
Physical Exam
General: No Apparent Distress and Comfortable
HEENT: PERRLA
Respiratory: Clear; No Wheezes
Cardiac: S1/S2 and Regular Rhythm
GI: Soft and Non Tender
Genito-urinary: Other (supra pubic flaherty with full bag (RN aware))
Musculoskeletal: Edema, Left Lower Extremity and Edema, Right Lower Extremity
Skin: Warm and Dry; No Rash
Neuro: Awake, Alert and Other (no facial asymmetry, answers questions with short answers, no pronator drift, cannot lift either leg off bed, can wiggle toes ); No Oriented
Psych: Calm and Apparent Dementia
Laboratory Results
-
04/30/24 11:53
04/30/24 17:04
Laboratory Results
Total Bilirubin 0.5 mg/dl (0.2-1.3) 04/30/24 11:53
AST 16 U/L (17-59) L 04/30/24 11:53
ALT < 10 U/L (0-50) 04/30/24 11:53
Alkaline Phosphatase 84 U/L (38-126) 04/30/24 11:53
Data Reviewed
-
Diagnostic Radiology: Report Reviewed by me
Lab Data: Labs Reviewed by me
Impression/Plan
-
Mr. Lui Choudhury is a 73 yo man with hx dementia, paroxysmal afib on Eliquis, CKD IV (with left arm AV fistula 02/15/24 for potential future HD need), DM2, CVA, BPH s/p TURP, urinary retention s/p suprapubic catheter on 03/27/24 (patient admitted
03/27-04/03 discharged to SNF) discharged from SNF yesterday to home care with , brought in today for issues with his balance.
Triage VS: T 98.7, P 52, RR 16, BP 156/70, SpO2 99%
LABS: WBC 5.6, Hg 9.7, PLT 160, Na 139, + 2.8, Cl 101, CO2 29, Cr 3.4, Glucose 97, Ca 8.7, Mag 2.0, T. Bili 0.5, AST 16, ALT< 10, alk Phos 84
Ambulatory Dysfunction
-given patient on Eliquis and describes more RLE weakness at home - will obtain CT Head. symptoms on-going for a couple of weeks so if no bleed, OK to resume home Eliquis. Also concerned significant LE swelling contributing to weakness (see
below)
-obtain UA with reflex to cuture
-PT/OT
Hypokalemia
-s/p 40mEq this afternoon without good response, will give additional 40 now
-repeat K at 2AM
-hold CLICKER OPERATOR Bumex until K improved
-monitor on telelmetry
Dementia
Paroxysmal Atrial Fibrillation
-hold Eliquis until CT Head result
CKD IV
-s/p left AV fistula formation 02/15/24 for potential future HD needs
-creatinine at his baseline but patient with significant LE swelling up to knees
-will consult nephrology to help with fluid balance
-hold Bumex until hypokalemia resolved
DM 2
-A1c 6.0%
-patient not on DM meds at home
HLD
-CLICKER OPERATOR Statin
BPH s/p TURP
Urinary Retention s/p suprapubic catheter placement 03/27/24
Depression
-CLICKER OPERATOR Zoloft
FULL CODE - discussed with on admission. Explained that CPR with almost no chance of resulting in successful resuscitation and will result in trauma. She states she understands and needs to speak to son more.
DVT PPx - CLICKER OPERATOR eliquis (will order post head CT results)
76 minutes spent on patient evaluation, medical decision making, coordination of care
[2024-04-30] MEDS: ELIQUIS 2.5 MG PO (21:28)
[2024-04-30] MEDS: KEPPRA 500 MG PO (21:43)
[2024-04-30 21:50] LABS: Urine Albumin 1+ (Neg - Trace); Urine Bilirubin Negative (Negative); Urine Character Clear (Clear); Urine Color Yellow; Urine Glucose Negative (Negative); Urine Ketone Negative (Negative); Urine Leukocyte 2+ (Negative); Urine Nitrite Positive (Negative); Urine Occult Blood Trace (Negative); Urine Urobilinogen Negative (Neg - 1+); Urine pH 6.5 (5.0-9.0)
[2024-04-30 21:58] LABS: Urine Squamous Cell 0-2 /LPF (Few)
[2024-04-30 21:59] LABS: Urine Bacteria Many (Negative); Urine White Cell 50-60 /HPF (0-5)
[2024-04-30] MEDS: NEURONTIN 100 MG PO (23:48)
[2024-04-30] MEDS: LIPITOR 40 MG PO (23:49)
[2024-04-30] MEDS: SODIUM BICARBONATE 650 MG PO (23:49)
[2024-05-01] VITALS (7 sets, daily range): BP systolic 110–167; BP diastolic 71–82; PULSE 87; O2SAT 96; BMI 29.3; BMI 28.7
[2024-05-01 04:55] LABS: Potassium 2.6 mmol/L (3.5-5.1)
[2024-05-01] MEDS: KCL 40 MEQ PO ×3 (05:21→21:17)
--- NOTE | 2024-05-01 05:37 | PTCARENOTE ---
0500 Critical lab K 2.6. D Alonso STARR notified, KCL 40meq ordered.
--- NOTE | 2024-05-01 05:39 | PTCARENOTE ---
2300 late entry. patient admitted to 403-1, arrived via stretcher, patient pleasant, Ox2-3 forgetful and confused at times. Oriented to room and floor routines. Inst concrete smoother laureano greenfield verb understanding. Admission and assessment completed. placed on
tele.
--- NOTE | 2024-05-01 06:25 | PTCARENOTE ---
pt came from ED w stool. was changed.
[2024-05-01] MEDS: KCL 160 MEQ IV (06:27)
[2024-05-01 06:54] LABS: Hematocrit 28.1 % (39.0-52.0); Hemoglobin 9.4 g/dL (13.0-18.0); Mean Corp Hgb Conc. 33.5 g/dL (33.0-37.0); Mean Corpuscular Hgb 29.9 pg (27.0-31.0); Mean Corpuscular Volume 89.5 fL (80.0-94.0); Mean Platelet Volume 10.7 fL (7.4-10.4); Platelet Count 173 10^3/uL (130-400); Red Blood Cell Count 3.14 10^6/uL (4.70-6.10); Red Cell Dist. Width 14.3 % (11.5-14.5); White Blood Cell Count 5.5 10^3/uL (4.8-10.8)
[2024-05-01 07:22] LABS: Blood Urea Nitrogen 44 mg/dl (9-20); Calcium 8.9 mg/dl (8.4-10.2); Carbon Dioxide 29 mmol/L (22-30); Chloride 104 mmol/L (98-107); Estimated Creatinine Clearance 21 ml/min; Glucose 80 mg/dl (70-99); Potassium 2.6 mmol/L (3.5-5.1); Sodium 144 mmol/L (135-145); eGFR 18.73
[2024-05-01 08:26] LABS: Glucose - Point of Care 92 mg/dl (70-99)
[2024-05-01] MEDS: ZOLOFT 100 MG PO (10:44)
[2024-05-01] MEDS: KCL 20 MEQ PO (10:44)
[2024-05-01] MEDS: NEURONTIN 100 MG PO ×3 (10:44→21:18)
[2024-05-01] MEDS: ELIQUIS 2.5 MG PO ×2 (10:44→21:16)
[2024-05-01] MEDS: ROCALTROL 0.25 MCG PO (10:44)
[2024-05-01] MEDS: KEPPRA 500 MG PO ×2 (10:44→21:16)
[2024-05-01] MEDS: SODIUM BICARBONATE 650 MG PO ×3 (10:45→21:18)
[2024-05-01] MEDS: FLUSH (NSS) 1 FLUSH IV (10:45)
--- NOTE | 2024-05-01 11:12 | WOUNDNOTE ---
WO RN NOTE: Reviewed chart and met with patient. Patient has loose left great toe nail. Pictures taken and clean dressing applied. TT Hospitalist and plan is for outpatient podiatry follow-up. Plan explained to patient. Order and discharge
instructions updated. KAYLA Hunter updated. Heels intact, sacrum covered with foam, air cushion when sitting in chair. Will sign off.
--- NOTE | 2024-05-01 12:01 | W.PN.HOSP.TC ---
Addendum entered and electronically signed by Roland Daniel MD 05/01/24 12:32:
I saw and evaluated the patient. I reviewed the resident�s note and agree with findings and plan as documented in the resident�s note.
No new complaints.
Gen: NAD, Awake and alert
Eyes: EOMI, PERRLA, no scleral icterus.
Neck: supple.
CV: RRR, +S1/S2, no m/r/g.
Resp: CTAB anteriorly, no rales, wheezes, or rhonchi.
Abd: +BS, soft, NT, ND
Skin: No rashes. 2+ B/L LE edema
Neuro: CN 2-12 intact, non-focal.
Psych: Normal mood and affect.
Hypokalemia:
-Continue to replete and trend potassium
-Mg normal
RLE weakness:
-check MRI brain
-OK to continue Eliquis as CT Brain without ICH
-PT/OT
Dispo: likely d/c tomorrow once K normalizes and MRI brain done
Original Note:
Today's Communication/Plan
-
Brain MRI pending
Nephrology consult appreciated
Follow potassium level
Assessment / Plan
Assessment / Plan
IMPRESSION: 73-year-old male with past history of CKD stage IV, paroxysmal A-fib on Eliquis, diabetes mellitus type 2, CVA (with left sided weakness), BPH s/p TURP, urinary retention (last month, s/p suprapubic catheter), presenting with right lower
extremity weakness for the past week.
PLAN:
Ambulatory dysfunction
History of previous stroke
Per , R>L lower extremity weakness.
CT head -no acute intracranial abnormality
MRI brain pending
Eliquis restarted
Hypokalemia
Labs pending
UA: nitrite positive, esterase 2+, WBC 50-60, bacteria many, squamous 0-2
UC pending
No leukocytosis, fever
paroxysmal A-fib
Restarted Eliquis
CKD stage IV
Creatinine pending
Left AV fistula placed 02/15/2024 for potential future HD needs
Nephrology consult appreciated
Bumex held
HLD
Continue statin
Diabetes mellitus type 2
Not on meds
Monitor glucose levels
Hemoglobin A1c 6.0
Depression
Continue Zoloft
Full code
DVT prophylaxis Eliquis
Anticipated Discharge: Within 24 hours
Subjective/Interval History
-
Date of Service: May 01, 2024
Objective Data
-
Labs:
Laboratory Results
05/01/24 05/01/24 05/01/24
04:11 04:32 11:58
WBC 5.5
Hgb 9.4 L
Hct 28.1 L
Plt Count 173
Sodium 144 Pending
Potassium 2.6 L* 2.6 L* Pending
Chloride 104 Pending
Carbon Dioxide 29 Pending
BUN 44 H Pending
Creatinine 3.3 H Pending
Glucose 80 Pending
Calcium 8.9 Pending
Vital Signs:
Vital Signs
Temp Pulse Resp BP Pulse Ox
97.9 F 87 18 162/75 97
05/01/24 11:43 05/01/24 11:43 05/01/24 11:43 05/01/24 11:43 05/01/24 11:43
I&O
04/30/24 05/01/24 05/02/24
06:59 06:59 06:59
Intake Total 880 / 880
Output Total 750 / 750 670 / 670
Balance 130 / 130 -670 / -670
Review of Systems
-
History Source: Patient
All other systems: Reviewed and negative
Constitutional: Reports No Symptoms
EENT: Reports No Symptoms Reported
Respiratory: Reports No Symptoms
Cardiac: Reports No Symptoms
Abdomen/GI: Reports No Symptoms
Breast: Reports No Symptoms
Genitourinary: Reports No Symptoms
Musculoskeletal: Reports Edema and Other (Right lower extremity weakness)
Skin: Reports No Symptoms
Neuro: Reports Weakness
Endocrine: Reports No Symptoms
Hematologic / Lymphatic: Reports No Symptoms
Physical Exam
-
General: No Apparent Distress
HEENT: Normocephalic
Respiratory: Clear to Auscultation
Cardiac: Regular Rhythm and S1/S2
GI: Soft, Nontender and Nondistended
Genito-urinary: No Costovertebral Tender
Musculoskeletal: Edema, Right Lower Extrem and Edema, Left Lower Extrem
Skin: Warm and Dry
Neuro: Awake, Alert and Other (Bilateral lower extremity weakness (cannot lift leg off bed))
Hematologic / Lymphatic: No Lymphadenopathy
Psych: Calm
[2024-05-01 12:11] LABS: Glucose - Point of Care 166 mg/dl (70-99)
--- NOTE | 2024-05-01 12:32 | CM ---
Addendum entered by Shante Wing 05/02/24 14:14:
Olive from [facility] notified that d/c cancelled. P [phone].
Per Olive, will accept over the weekend.
Original Note:
Received a call from Olive at [facility]. PT is accepted.
Called and left message x2 with Isabelle [phone] .
Olive from [facility] said she spoke with and she requested pt to return when medically ready .
As per pt not ready for dc today.
Phoebe
report [phone]
fax [phone]
[facility]
[2024-05-01 12:34] LABS: Blood Urea Nitrogen 43 mg/dl (9-20); Calcium 8.9 mg/dl (8.4-10.2); Carbon Dioxide 30 mmol/L (22-30); Chloride 104 mmol/L (98-107); Estimated Creatinine Clearance 22 ml/min; Glucose 162 mg/dl (70-99); Potassium 3.2 mmol/L (3.5-5.1); Sodium 145 mmol/L (135-145); eGFR 19.44
--- NOTE | 2024-05-01 15:10 | W.CON.NEPH ---
Consultation
-
Date/Time Consultation Requested: 04/30/24 2233
Date/Time Consultation Performed: 1515
Requesting Provider: Christina Bae
Performing Provider: Ankur Cabrera
Reason for Consultation: CKD, hypokalemia
Medical History
-
Chief Complaint: Weakness
History of Present Illness:
73 yo man with hx dementia, paroxysmal afib on Eliquis, CKD V (with left arm AV fistula 02/15/24 for potential future HD need) follows Dr Flores on bumex for edema, DM2 no meds, CVA, BPH s/p TURP, anemia on procrit, P afib on eliquis, HLD on statin,
urinary retention s/p suprapubic catheter on 03/27/24 (patient admitted 03/27-04/03 discharged to SNF) discharged from SNF 1day ago to home care with , brought in last night for issues with his balance. noticed that his right leg was very
weak and shakey and slid down where could not lift him up and called EMS. His right leg is normally the more stable one (left-sided weakness post stroke). In ER he noted cr 3.4 baseline but potassium low at 2.8, repeat labs after replacement
still low 2.6. Nephrology consulted to review CKD status and meds. He reports intermittent dizziness for a while though he felt more yesterday. LE edema likely chronic. Denies chest pain, no shortness of breath, no headache, no nausea or vomiting.
Past Medical History
ASCVD / Non-Obstructing Coronary Disease
CVA / TIA
BPH
CKD5
Hypertension
Documented history of DM-II
Obesity
Dementia
h/o SDH
CAD
Past Surgical History: Other (Herniorrhaphy TURP Cardiac Cath (no angio / stents), Procedure: TURP(2007) 04/24/2011 Procedure: Hernia repair() 11/25/2014 cardiac cath 01/2019 right femur fracture repair 07/2022 AVF creation
(Zaragoza) 12/18/23 AVF Revision (Zaragoza) 02/15/24)
Social History
Tobacco: Former Smoker
Alcohol: None
Living: With Family
Family History
Family History: Not Pertinent
Allergies / Home Medications
Allergy/AdvReac Type Severity Reaction Status Date / Time
alcohol Allergy Anaphylaxis Verified 04/30/24 11:02
to beer
Anesthetics - Amide Type - Allergy Unknown Verified 04/30/24 11:02
Select A
dexamethasone [From Decadron] Allergy Hypotension Verified 04/30/24 11:02
tomato Allergy Anaphylaxis Verified 04/30/24 11:02
�Medication �Instructions �Recorded �Confirmed �Type
bumetanide 1 mg tablet 2 mg PO DAILY Fluid 09/29/10 04/30/24 History
retention/Swelling
sertraline 100 mg tablet 100 mg PO DAILY depression/anxiety 07/10/22 04/30/24 History
atorvastatin 40 mg tablet 40 mg PO HS Hyperlipidemia 07/11/22 04/30/24 History
calcitriol 0.25 mcg capsule 0.25 mcg PO DAILY Kidney Disease 07/11/22 04/30/24 History
gabapentin 100 mg capsule 100 mg PO TID pain 12/14/23 04/30/24 History
levetiracetam 500 mg tablet 500 mg PO BID seizures 12/14/23 04/30/24 History
(Keppra)
sodium bicarbonate 650 mg tablet 650 mg PO TID Supplement 02/07/24 04/30/24 History
apixaban 2.5 mg tablet (Eliquis) 2.5 mg PO BID Blood Clot 04/30/24 04/30/24 History
Prevention/Tx
epoetin mehreen-epbx 2,000 unit/mL 2,000 unit SC WEEKLY anemia 04/30/24 04/30/24 History
injection solution (Retacrit)
Review of Systems
-
All other systems: Negative unless noted
Physical Exam
Vital Signs
Vital Signs
Temp Pulse Resp BP Pulse Ox
97.9 F 87 18 162/75 97
05/01/24 11:43 05/01/24 11:43 05/01/24 11:43 05/01/24 11:43 05/01/24 11:43
Lab Results
WBC 5.5 10^3/uL (4.8-10.8) 05/01/24 04:32
RBC 3.14 10^6/uL (4.70-6.10) L 05/01/24 04:32
Hgb 9.4 g/dL (13.0-18.0) L 05/01/24 04:32
Hct 28.1 % (39.0-52.0) L 05/01/24 04:32
Plt Count 173 10^3/uL (130-400) 05/01/24 04:32
Sodium 145 mmol/L (135-145) 05/01/24 11:58
Potassium 3.2 mmol/L (3.5-5.1) L 05/01/24 11:58
Chloride 104 mmol/L (98-107) 05/01/24 11:58
Carbon Dioxide 30 mmol/L (22-30) 05/01/24 11:58
BUN 43 mg/dl (9-20) H 05/01/24 11:58
Creatinine 3.2 mg/dL (0.7-1.3) H 05/01/24 11:58
eGFR 19.44 05/01/24 11:58
Glucose 162 mg/dl (70-99) H 05/01/24 11:58
Calcium 8.9 mg/dl (8.4-10.2) 05/01/24 11:58
Albumin 3.3 g/dl (3.5-5.0) L 04/30/24 11:53
CXR:
IMPRESSION:
No acute cardiopulmonary process.
CT head:
IMPRESSION:
No acute intracranial abnormality noted.
Physical Exam
General: Awake, Alert, Oriented, AOx3, No Distress and Nontoxic
HEENT: EOMI, Anicteric, Conjunctivae Clear, Facial Symmetry and Neck Supple
Respiratory: Crackels (at bases)
Cardiac: S1/S2 and Regular Rate/Rhythm
Breast: Deferred by me
Abdomen: Soft, Nontender and Nondistended
Genito-urinary: Other (supra pubic catheter)
Musculoskeletal: No Cyanosis and Edema (2+)
Skin: No Rash and Normal Turgor
Neuro: Nonfocal/Grossly Intact
Psych: Mood/afflect pleasant, Insight/judgement good and Appropriate
Vascular Access: AVF (left UE patent)
Data Reviewed
-
Radiology: Report Reviewed by me and Discussed with Patient
Labs: Labs Reviewed by me and Discussed with Patient
Assessment/Plan
-
IMP:
Ambulatory Dysfunction
Hypokalemia
Dementia
Paroxysmal Atrial Fibrillation
CKD V-cr mid 3s
-s/p left AV fistula formation 02/15/24 for potential future HD needs
DM 2
HLD
BPH s/p TURP
Urinary Retention s/p suprapubic catheter placement 03/27/24
Depression
Anemia -procrit out pt
chr met acidosis on po bciarb
Plan:
A/w gen weakness and noted severe hypokalemia with diuresis
cont to replace kcl,total he received 120meq of kcl today
last level at 3.1, likely need more replacement
mg is normal , con to hold bumex but likely resume tomorrow based on labs
May need kcl 20meq daily with bumex and liberate k in diet.
cr at baseline , AVF is ready to use when needed
no HD needs currently
hold po bicarb with met alkalosis
monitor labs and wts
BP are some what labile
hb stable , out pt procrit
d/w pt
[2024-05-01 18:52] LABS: Potassium 3.7 mmol/L (3.5-5.1)
[2024-05-01] MEDS: LIPITOR 40 MG PO (21:18)
[2024-05-02] VITALS (7 sets, daily range): BP systolic 130–177; BP diastolic 63–99; PULSE 96; O2SAT 96; BMI 28.6
[2024-05-02 05:09] LABS: % Basophils 0.6 % (0-2); % Eosinophils 4.4 % (0-6); % Immature Granulocytes 0.2 % (0-0.5); % Lymphocytes 25.9 % (20.5-51.1); % Monocytes 8.1 % (1.7-9.3); % Neutrophils 60.8 % (42.2-75.2); Absolute Eosinophils 0.2 10^3/uL (0-0.7); Absolute Lymphocytes 1.4 10^3/uL (1.2-3.4); Absolute Monocytes 0.4 10^3/uL (0.1-0.6); Absolute Neutrophils 3.3 10^3/uL (1.4-6.5); Hematocrit 26.7 % (39.0-52.0); Hemoglobin 8.9 g/dL (13.0-18.0); Mean Corp Hgb Conc. 33.3 g/dL (33.0-37.0); Mean Corpuscular Hgb 29.7 pg (27.0-31.0); Nucleated Red Blood Cells % 0 % (-); Platelet Count 172 10^3/uL (130-400); Red Cell Dist. Width 14.1 % (11.5-14.5); White Blood Cell Count 5.5 10^3/uL (4.8-10.8)
[2024-05-02 05:31] LABS: ALT (SGPT) < 10 U/L (0-50); AST (SGOT) 12 U/L (17-59); Alkaline Phosphatase 82 U/L (38-126); Blood Urea Nitrogen 45 mg/dl (9-20); Carbon Dioxide 29 mmol/L (22-30); Chloride 106 mmol/L (98-107); Estimated Creatinine Clearance 22 ml/min; Glucose 113 mg/dl (70-99); Potassium 3.5 mmol/L (3.5-5.1); Sodium 145 mmol/L (135-145); Total Bilirubin 0.3 mg/dl (0.2-1.3); Total Protein 5.4 g/dl (6.3-8.2); eGFR 19.44
--- NOTE | 2024-05-02 07:47 | W.PN.HOSP.TC ---
Addendum entered and electronically signed by Roland Daniel MD 05/02/24 14:07:
UCx with enterococcus. Start IV Vanco, c/s ID, hold discharge
Addendum entered and electronically signed by Roland Daniel MD 05/02/24 13:03:
I saw and evaluated the patient. I reviewed the resident�s note and agree with findings and plan as documented in the resident�s note.
No new complaints.
Gen: NAD, Awake and alert
Eyes: EOMI, PERRLA, no scleral icterus.
Neck: supple.
CV: remains RRR, +S1/S2, no m/r/g.
Resp: remains CTAB anteriorly, no rales, wheezes, or rhonchi.
Abd: +BS, soft, NT, ND
Skin: remains No rashes. 2+ B/L LE edema
Neuro: CN 2-12 intact, non-focal.
Psych: Normal mood and affect.
Hypokalemia:
-Mg normal
-resolved with repletion
RLE weakness:
-MRI brain without acute CVA
-PT/OT
CKD5:
-resume bumex on d/c with daily K supplementation as per renal
Patient's updated over the phone. All questions were answered.
Total time spent on d/c = 33 min. This included today's physical exam, progress note, review of laboratory and diagnostic data, preparation of discharge documents and prescriptions, and discussions about the pt's hospital course and discharge plan
with the patient and other medical esthetician involved in the patient's care.
Stage 1 sacral pressure injury, POA
Addendum entered and electronically signed by Janelle Beauchamp MD, Resident 05/02/24 12:41:
- Sacral pressure ulcer
Original Note:
Today's Communication/Plan
-
Started KCl 20 mg daily
Resume Bumex
MRI brain pending
Outpatient podiatry follow-up
Assessment / Plan
Assessment / Plan
IMPRESSION: 73-year-old male with past history of CKD stage IV, paroxysmal A-fib on Eliquis, diabetes mellitus type 2, CVA (with left sided weakness), BPH s/p TURP, urinary retention (last month, s/p suprapubic catheter), presenting with right lower
extremity weakness for the past week.
PLAN:
Ambulatory dysfunction
History of previous stroke
Per , R>L lower extremity weakness.
CT head -no acute intracranial abnormality
MRI brain pending
Eliquis restarted
Hypokalemia
Now resolved, potassium 3.5 today
Nephrology consult - May need KCl 20meq Daily with Bumex, likely resume Bumex today, hold p.o. bicarb with met alkalosis
UA: nitrite positive, esterase 2+, WBC 50-60, bacteria many, squamous 0-2
UC pending
No leukocytosis, fever
paroxysmal A-fib
Restarted Eliquis
CKD stage IV
Creatinine at baseline, nephrology following, no HD needs currently
Left AV fistula placed 02/15/2024 for potential future HD needs
Bumex held, likely resume today
HLD
Continue statin
Diabetes mellitus type 2
Not on meds
Monitor glucose levels
Hemoglobin A1c 6.0
Depression
Continue Zoloft
Anemia
Outpatient Procrit
Full code
DVT prophylaxis Eliquis
Anticipated Discharge: Within 24 hours
Subjective/Interval History
-
Date of Service: May 02, 2024
Objective Data
-
Labs:
Laboratory Results
05/02/24
04:34
WBC 5.5
Hgb 8.9 L
Hct 26.7 L
Plt Count 172
Sodium 145
Potassium 3.5
Chloride 106
Carbon Dioxide 29
BUN 45 H
Creatinine 3.2 H
Glucose 113 H
Calcium 9.0
Total Bilirubin 0.3
AST 12 L
ALT < 10
Alkaline Phosphatase 82
Vital Signs:
Vital Signs
Temp Pulse Resp BP Pulse Ox
98.2 F 90 18 138/83 95
05/02/24 03:26 05/02/24 03:26 05/02/24 03:26 05/02/24 03:26 05/02/24 03:26
I&O
05/01/24 05/02/24 05/03/24
06:59 06:59 06:59
Intake Total 880 / 880 1100 / 1100
Output Total 750 / 750 2059 / 2059
Balance 130 / 130 -960 / -960
Review of Systems
-
History Source: Patient
All other systems: Reviewed and negative
Constitutional: Reports No Symptoms
EENT: Reports No Symptoms Reported
Respiratory: Reports No Symptoms
Cardiac: Reports No Symptoms
Abdomen/GI: Reports No Symptoms
Breast: Reports No Symptoms
Genitourinary: Reports No Symptoms
Musculoskeletal: Reports Edema and Other (Right lower extremity weakness)
Skin: Reports No Symptoms
Neuro: Reports Weakness
Endocrine: Reports No Symptoms
Hematologic / Lymphatic: Reports No Symptoms
Physical Exam
-
General: No Apparent Distress
HEENT: Normocephalic
Respiratory: Clear to Auscultation
Cardiac: Regular Rhythm and S1/S2
GI: Soft, Nontender and Nondistended
Genito-urinary: No Costovertebral Tender
Musculoskeletal: Edema, Right Lower Extrem and Edema, Left Lower Extrem
Skin: Warm and Dry
Neuro: Awake, Alert and Other (Bilateral lower extremity weakness (cannot lift leg off bed))
Hematologic / Lymphatic: No Lymphadenopathy
Psych: Calm
[2024-05-02] MEDS: ROCALTROL 0.25 MCG PO (10:33)
[2024-05-02] MEDS: SODIUM BICARBONATE 650 MG PO ×3 (10:33→21:26)
[2024-05-02] MEDS: KEPPRA 500 MG PO ×2 (10:34→20:24)
[2024-05-02] MEDS: NEURONTIN 100 MG PO ×3 (10:34→21:26)
[2024-05-02] MEDS: ZOLOFT 100 MG PO (10:34)
[2024-05-02] MEDS: ELIQUIS 2.5 MG PO ×2 (10:34→20:23)
[2024-05-02] MEDS: KCL 20 MEQ PO (10:36)
[2024-05-02] MEDS: KCL 40 MEQ PO (10:36)
--- NOTE | 2024-05-02 11:03 | PN.CDI ---
CDI
- -
CDI:
Physician Documentation Request
Admit Date: 04/30/24 21:57
Dear Doctor Amanda Beauchamp,
Please review the following and provide your response in the progress notes.
Clinical Indicators:
- 05/01 RN skin assessment indicates stage 1 sacral pressure injury, POA
Physician documentation of the type and location of wounds is required for compliant documentation. Based on the above clinical findings and your assessment, please provide the following in your progress note:
1. Location of the ulcer/wound, including laterality.
2. Type (etiology) of ulcer/wound:
- Diabetic ulcer
- Arterial (ischemic) ulcer
- Traumatic wound
- Venous stasis ulcer
- Pressure (decubitus) ulcer
- Non-healing surgical wound
- Other
- Unable to determine
Use of terms such as suspected, likely, concern for, or probable (associated with a specific diagnosis that is being evaluated, monitored, or treated as if it exists) are acceptable and can be coded in the inpatient setting, when documented at the
time of discharge.
Thank you,
Brigitte Jones RN
CDI Specialist
Please use your independent medical judgment in providing your response.
*Source: National Pressure Ulcer Advisory Panel (NPUAP)
--- NOTE | 2024-05-02 11:10 | CM ---
Addendum entered by Shante Wing 05/02/24 14:29:
Olive from [facility] notified that d/c cancelled. P [phone].
Per Olive, will accept over the weekend.
Addendum entered by Shante Wing 05/02/24 13:04:
Spoke with spouse, okay to schedule transport.
Original Note:
Patient seen bedside.
Patient for tentative transfer to [facility] [place] today.
Spoke with Lola from [facility], bed available.
TC to son, left VM.
TC to spouse she would like a call from the MD prior to agreeing to transfer.
Spouse will call CM back after she speaks with MD.
TT to resident.
Ambulance transport forms on chart.
IMM reviewed via phone with spouse.
Plan: [facility] once medically stable
Phoebe
report [phone]
fax [phone]
--- NOTE | 2024-05-02 13:50 | W.PN.NEPH.PH ---
Today's Communication / Plan
-
- likely for d/c
- labs on Sunday
Assessment/Plan
-
IMP:
Ambulatory Dysfunction
Hypokalemia
Dementia
Paroxysmal Atrial Fibrillation
CKD V-cr mid 3s
-s/p left AV fistula formation 02/15/24 for potential future HD needs
DM 2
HLD
BPH s/p TURP
Urinary Retention s/p suprapubic catheter placement 03/27/24
Depression
Anemia -procrit out pt
chr met acidosis on po bciarb
Plan:
A/w gen weakness and noted severe hypokalemia with diuresis
K now improved and patient planned for d/c today. Mg normal
encouraged bumex 2mg daily and KCl 20meq daily. he will need labs on Sunday to ensure K is appropriate.
mg is normal
liberate K in diet
cr at baseline , AVF is ready to use when needed
no HD needs currently
hold po bicarb with met alkalosis
monitor labs and wts
BP are some what labile
hgb stable, out pt procrit
d/w pt
-
-
Date of Service: May 02, 2024
CC / HPI / ROS
-
Chief Complaint:
hypokalemia
History of Present Illness:
K low in the setting of diuretics, now normalized
restarted bumex
Review of Systems:
feeling well
ambulating well
Labs
-
Labs:
WBC 5.5 10^3/uL (4.8-10.8) 05/02/24 04:34
RBC 3.00 10^6/uL (4.70-6.10) L 05/02/24 04:34
Hgb 8.9 g/dL (13.0-18.0) L 05/02/24 04:34
Hct 26.7 % (39.0-52.0) L 05/02/24 04:34
Plt Count 172 10^3/uL (130-400) 05/02/24 04:34
Sodium 145 mmol/L (135-145) 05/02/24 04:34
Potassium 3.5 mmol/L (3.5-5.1) 05/02/24 04:34
Chloride 106 mmol/L (98-107) 05/02/24 04:34
Carbon Dioxide 29 mmol/L (22-30) 05/02/24 04:34
BUN 45 mg/dl (9-20) H 05/02/24 04:34
Creatinine 3.2 mg/dL (0.7-1.3) H 05/02/24 04:34
eGFR 19.44 05/02/24 04:34
Glucose 113 mg/dl (70-99) H 05/02/24 04:34
Calcium 9.0 mg/dl (8.4-10.2) 05/02/24 04:34
Albumin 3.0 g/dl (3.5-5.0) L 05/02/24 04:34
Physical Exam
-
Vital Signs:
Vital Signs
Temp Pulse Resp BP Pulse Ox
98.0 F 96 16 155/88 96
05/02/24 11:03 05/02/24 11:03 05/02/24 11:03 05/02/24 11:03 05/02/24 11:03
Cardiovascular:: Regular rate and rhythm
Respiratory:: Bilateral: CTA
Lung Excursion:: Normal
Abdomen:: Nontender and Soft
Bowel Sounds:: Normal
Extremity Edema:: +2: Bilateral: (to the thighs)
Zaragoza Catheter: Yes
--- NOTE | 2024-05-02 14:46 | CON.ID ---
Consultation
-
Date/Time Consultation Requested: 05/02/2024 1425
Date/Time Consultation Performed: 05/02/2024 1440
Requesting Provider: Dr. Daniel
Performing Provider: Dr. Marsh
Reason for Consultation: UTI
Chief Complaint / Past History
History of Present Illness
Rafal Choudhury is a 73-year-old man being evaluated at the request of Dr. Daniel in regards to a urinary tract infection. History is obtained from chart review, along with patient interview. The patient was an inpatient at [facility] through
04/09/2024, during which time he was treated for urinary retention secondary to neurogenic bladder. He underwent suprapubic tube placement on 03/27/2024. Thereafter, he was transitioned to rehab where he was until the day before admission when he
returned home to his . According to reviewed notes the noted that since discharge the patient has had issues with balance and attributed to issues related to his prior stroke. He the reported that since he had been home he had lost
his balance several times.
Workup in the emergency room did not reveal a leukocytosis, but he urinalysis has been shown to be positive for white cells, and culture has revealed growth of Enterococcus and gram-negative rods. Infectious Diseases is asked to comment upon
further antimicrobial management. The patient has been started on empiric vancomycin.
At present, the patient reports feeling okay but generally weak. He admits to an episode of loose stool today, and also notes some lower abdominal discomfort. He denies any fevers or chills. He denies any cough.
Past History
Additional Past Medical History:
CAD
CVA/TIA
BPH
CKD stage IV
HTN
DM 2
Obesity
Additional Past Surgical History:
TURP
Cardiac cath
Suprapubic catheter
Allergy History:
alcohol Allergy (Verified 04/30/24 11:02)
Anaphylaxis to beer
Anesthetics - Amide Type - Select A Allergy (Verified 05/01/24 15:35)
SEE BELOW
dexamethasone [From Decadron] Allergy (Verified 04/30/24 11:02)
Hypotension
tomato Allergy (Verified 04/30/24 11:02)
Anaphylaxis
Medications Reviewed: Yes
Current Antibiotics:
Vancomycin
Social History
Tobacco: Former Smoker
Alcohol: None
Drug: None
Personal:
Living: With Family
Employment: Retired
Review of Systems
Vital Signs
Temp Pulse Resp BP Pulse Ox
98.0 F 96 16 155/88 96
05/02/24 11:03 05/02/24 11:03 05/02/24 11:03 05/02/24 11:03 05/02/24 11:03
Physical Exam
Physical Exam
Constitutional: No Acute Distress, Comfortable, Chronically Ill and Non-toxic
Eyes: Pupils Equal, Pupils Round, No Conjunctival Hemorrhage and Sclera Anicteric
Oral: No Thrush and No Ulcers
Cardiovascular: Regular Rate and S1/S2; Negative S3/S4
Pulmonary: Clear; Negative Wheezes, Rales or Rhonchi
Gastrointestinal: Soft, Non Tender and Non Distended
Genito-Urinary: Zaragoza (Suprapubic catheter) and Turbid Urine; Negative Clear Urine or Hematuria
Extremities: Edema (3+); Negative Cyanosis or Erythema
Neurological: Awake and Alert
Psychological: Calm
.
Lab / Diagnostic Study Results
05/02/24 04:34
05/02/24 04:34
Abs Immat Gran (auto) 0.0 10^3/uL (0-0.05) 05/02/24 04:34
Absolute Neuts (auto) 3.3 10^3/uL (1.4-6.5) 05/02/24 04:34
Absolute Lymphs (auto) 1.4 10^3/uL (1.2-3.4) 05/02/24 04:34
Absolute Monos (auto) 0.4 10^3/uL (0.1-0.6) 05/02/24 04:34
Absolute Basos (auto) 0.0 10^3/uL (0-0.2) 05/02/24 04:34
Immature Gran % 0.2 % (0-0.5) 05/02/24 04:34
Neutrophils % 60.8 % (42.2-75.2) 05/02/24 04:34
Lymphocytes % 25.9 % (20.5-51.1) 05/02/24 04:34
Monocytes % 8.1 % (1.7-9.3) 05/02/24 04:34
Eosinophils % 4.4 % (0-6) 05/02/24 04:34
Basophils % 0.6 % (0-2) 05/02/24 04:34
Ur Squamous Epith Cells 0-2 /LPF (Few) 04/30/24 21:41
Microbiology Results
Micro:
04/30/24 21:41 Urine Culture - Preliminary
Urine Gram negative bacilli
Enterococcus species
Imaging:
04/30/2024 CXR (2 view): No acute cardiopulmonary process noted. Film personally viewed.
Assessment / Plan
Weakness
Diarrhea
Pyuria with bacteriuria
CAD
CVA/TIA
BPH
CKD stage IV
HTN
DM 2
Obesity
Recommendations:
Urine cultures with gram-negative rods and Enterococcus.
Consolidate antibiotics to Zosyn
Await further culture data to guide antimicrobial selection and potential de-escalation
Follow-up for additional diarrhea; if occurs, check C. difficile
[2024-05-02] MEDS: ZOSYN 50 IV ×2 (17:30→21:26)
[2024-05-02] MEDS: FLUSH (NSS) 2 FLUSH IV (17:30)
[2024-05-02] MEDS: LIPITOR 40 MG PO (21:26)
[2024-05-03 03:42] VITALS: BP 133/71
[2024-05-03] MEDS: ZOSYN 50 IV ×4 (04:41→21:59)
[2024-05-03 06:00] VITALS: BMI 28.7
[2024-05-03 06:25] LABS: Blood Urea Nitrogen 42 mg/dl (9-20); Calcium 8.8 mg/dl (8.4-10.2); Carbon Dioxide 28 mmol/L (22-30); Chloride 106 mmol/L (98-107); Estimated Creatinine Clearance 21 ml/min; Glucose 104 mg/dl (70-99); Potassium 3.2 mmol/L (3.5-5.1); Sodium 143 mmol/L (135-145); eGFR 18.73
[2024-05-03 07:20] VITALS: BP 136/67
[2024-05-03] MEDS: KCL 40 MEQ PO ×2 (08:44→11:47)
[2024-05-03] MEDS: ZOLOFT 100 MG PO (08:44)
[2024-05-03] MEDS: SODIUM BICARBONATE 650 MG PO ×3 (08:44→21:59)
[2024-05-03] MEDS: NEURONTIN 100 MG PO ×3 (08:44→21:59)
[2024-05-03] MEDS: ROCALTROL 0.25 MCG PO (08:44)
[2024-05-03] MEDS: KEPPRA 500 MG PO ×2 (08:44→21:59)
[2024-05-03] MEDS: ELIQUIS 2.5 MG PO ×2 (08:44→21:58)
--- NOTE | 2024-05-03 09:24 | W.PN.HOSP.TC ---
Addendum entered and electronically signed by Roland Daniel MD 05/03/24 10:28:
I saw and evaluated the patient. I reviewed the resident�s note and agree with findings and plan as documented in the resident�s note.
No new complaints.
Gen: NAD, Awake and alert
Eyes: EOMI, PERRLA, no scleral icterus.
Neck: supple.
CV: Continues to remain RRR, +S1/S2, no m/r/g.
Resp: Continues to CTAB anteriorly, no rales, wheezes, or rhonchi.
Abd: +BS, soft, NT, ND
Skin: Continues to remain no rashes. 2+ B/L LE edema
Neuro: CN 2-12 intact, non-focal.
Psych: Normal mood and affect.
Acute UTI:
-cont to follow UCx
-ID following
-cont Zosyn
-Uro to change SPT
Hypokalemia:
-Mg normal
-Increase daily potassium supplementation to 40meq. Give an extra dose of 40meq K today.
-start aldactone
RLE weakness:
-MRI brain without acute CVA
-PT/OT
CKD5:
-resume bumex today as per renal
Total time spent on today's encounter was 50 minutes which included time spent in counseling the patient/family regarding diagnosis and treatment plan as listed above, goals of care, and symptom management. Case was discussed with nursing staff,
specialists, and care coordinators/case management. All labs and imaging personally reviewed by me. Remainder the time spent in detailed review of previous records, lab data, imaging, and other medical provider documentation.
Original Note:
Today's Communication/Plan
-
Continue Zosyn
Increase KCl to 40 meq daily
Urology consult appreciated
Assessment / Plan
Assessment / Plan
IMPRESSION: 73-year-old male with past history of CKD stage IV, paroxysmal A-fib on Eliquis, diabetes mellitus type 2, CVA (with left sided weakness), BPH s/p TURP, urinary retention (last month, s/p suprapubic catheter), presenting with right lower
extremity weakness for the past week.
PLAN:
Ambulatory dysfunction
History of previous stroke
Per , R>L lower extremity weakness.
CT head -no acute intracranial abnormality
MRI brain pending
Continue Eliquis
Pyuria with bacteriuria
Urine culture with gram-negative rods and Enterococcus
ID following-switch antibiotic to Zosyn, Awaiting further culture data to guide antimicrobial selection
No leukocytosis, fever
Urology consult appreciated for suprapubic catheter replacement if needed
Hypokalemia
potassium 3.2 today
Nephrology consult - May need KCl 20meq Daily with Bumex, likely resume Bumex, hold p.o. bicarb with met alkalosis
Increase daily KCl to 40 meq
paroxysmal A-fib
Currently in sinus rhythm
Continue Eliquis
CKD stage IV
Creatinine at baseline, nephrology following, no HD needs currently
Left AV fistula placed 02/15/2024 for potential future HD needs
Bumex held, likely resume today
HLD
Continue statin
Diabetes mellitus type 2
Not on meds
Monitor glucose levels
Hemoglobin A1c 6.0
Depression
Continue Zoloft
Anemia
Outpatient Procrit
Full code
DVT prophylaxis Eliquis
Anticipated Discharge: 24 - 48 hours
Subjective/Interval History
-
Date of Service: May 03, 2024
Objective Data
-
Labs:
Laboratory Results
05/03/24 05/03/24
05:33 12:00
Sodium 143 Pending
Potassium 3.2 L Pending
Chloride 106 Pending
Carbon Dioxide 28 Pending
BUN 42 H Pending
Creatinine 3.3 H Pending
Glucose 104 H Pending
Calcium 8.8 Pending
Vital Signs:
Vital Signs
Temp Pulse Resp BP Pulse Ox
98.4 F 55 16 136/67 98
05/03/24 07:20 05/03/24 07:20 05/03/24 07:20 05/03/24 07:20 05/03/24 07:20
I&O
05/02/24 05/03/24 05/04/24
06:59 06:59 06:59
Intake Total 1100 / 1100 1420 / 1420
Output Total 2059 / 2059 750 / 750
Balance -960 / -960 670 / 670
Review of Systems
-
History Source: Patient
All other systems: Reviewed and negative
Constitutional: Reports No Symptoms
EENT: Reports No Symptoms Reported
Respiratory: Reports No Symptoms
Cardiac: Reports No Symptoms
Abdomen/GI: Reports No Symptoms
Breast: Reports No Symptoms
Genitourinary: Reports No Symptoms
Musculoskeletal: Reports Edema and Other (Right lower extremity weakness)
Skin: Reports No Symptoms
Neuro: Reports Weakness
Endocrine: Reports No Symptoms
Hematologic / Lymphatic: Reports No Symptoms
Physical Exam
-
General: No Apparent Distress
HEENT: Normocephalic
Respiratory: Clear to Auscultation
Cardiac: Regular Rhythm and S1/S2
GI: Soft, Nontender and Nondistended
Genito-urinary: No Costovertebral Tender
Musculoskeletal: Edema, Right Lower Extrem and Edema, Left Lower Extrem
Skin: Warm and Dry
Neuro: Awake, Alert and Other (Bilateral lower extremity weakness (cannot lift leg off bed))
Hematologic / Lymphatic: No Lymphadenopathy
Psych: Calm
[2024-05-03] MEDS: ALDACTONE 25 MG PO (10:01)
[2024-05-03 10:15] LABS: % Basophils 0.7 % (0-2); % Eosinophils 5.5 % (0-6); % Immature Granulocytes 0.2 % (0-0.5); % Lymphocytes 28.2 % (20.5-51.1); % Monocytes 6.9 % (1.7-9.3); % Neutrophils 58.5 % (42.2-75.2); Absolute Eosinophils 0.3 10^3/uL (0-0.7); Absolute Lymphocytes 1.6 10^3/uL (1.2-3.4); Absolute Monocytes 0.4 10^3/uL (0.1-0.6); Absolute Neutrophils 3.4 10^3/uL (1.4-6.5); Hematocrit 27.3 % (39.0-52.0); Hemoglobin 8.8 g/dL (13.0-18.0); Mean Corp Hgb Conc. 32.2 g/dL (33.0-37.0); Mean Corpuscular Hgb 30.3 pg (27.0-31.0); Mean Corpuscular Volume 94.1 fL (80.0-94.0); Mean Platelet Volume 10.5 fL (7.4-10.4); Nucleated Red Blood Cells % 0 % (-); Platelet Count 159 10^3/uL (130-400); Red Cell Dist. Width 14.1 % (11.5-14.5); White Blood Cell Count 5.8 10^3/uL (4.8-10.8)
[2024-05-03 11:10] VITALS: BP 142/68
[2024-05-03 12:40] LABS: Blood Urea Nitrogen 44 mg/dl (9-20); Calcium 8.8 mg/dl (8.4-10.2); Carbon Dioxide 30 mmol/L (22-30); Chloride 103 mmol/L (98-107); Estimated Creatinine Clearance 22 ml/min; Glucose 121 mg/dl (70-99); Potassium 3.8 mmol/L (3.5-5.1); Sodium 141 mmol/L (135-145); eGFR 19.44
--- NOTE | 2024-05-03 12:45 | W.PN.ID1 ---
Date of Service
Date of Service: May 03, 2024
Today's Communication
Continue Zosyn for today. Await final culture results.
Assessment / Plan
Weakness
Diarrhea
Pyuria with bacteriuria
CAD
CVA/TIA
BPH
CKD stage IV
HTN
DM 2
Obesity
Recommendations:
Urine cultures pending. Preliminary results show gram-negative rods and Enterococcus.
Continue with Zosyn
Await further culture data to guide antimicrobial selection and potential de-escalation
Follow-up for additional diarrhea; if occurs, check C. difficile
����������������������������������������������������������
Chief Complaint
-: UTI
Subjective / Review of Systems
Review of Systems: No Fever and No Chills
Vital Signs / Physical Exam
Vital Signs
Vital Signs
Temp Pulse Resp BP Pulse Ox
98.4 F 52 16 142/68 98
05/03/24 11:10 05/03/24 11:10 05/03/24 11:10 05/03/24 11:10 05/03/24 11:10
Physical Exam
Constitutional: No Acute Distress, Comfortable, Chronically Ill and Non-toxic
Eyes: Sclera Anicteric
Cardiovascular: S1/S2; Negative S3/S4
Pulmonary: Non Labored
Gastrointestinal: Soft and Non Tender
Genito-Urinary: Zaragoza and Turbid Urine
Neurological: Awake and Alert
Psychological: Calm
Objective Data
Lab Data
Lab Results
05/03/24 05:33
05/03/24 12:03
Estimated Creat Clear 22 ml/min 05/03/24 12:03
Total Bilirubin 0.3 mg/dl (0.2-1.3) 05/02/24 04:34
AST 12 U/L (17-59) L 05/02/24 04:34
ALT < 10 U/L (0-50) 05/02/24 04:34
Alkaline Phosphatase 82 U/L (38-126) 05/02/24 04:34
Most recent labs reviewed.
Micro Results:
04/30/24 21:41 Urine Culture - Preliminary
Urine Gram negative bacilli
Enterococcus species
Imaging:
04/30/2024 CXR (2 view): No acute cardiopulmonary process noted. Film personally viewed.
--- NOTE | 2024-05-03 13:28 | W.PN.NEPH.PH ---
Today's Communication / Plan
-
-spironolactone
-K repeltion
-bumex
Assessment/Plan
-
IMP:
Ambulatory Dysfunction
Hypokalemia
Dementia
Paroxysmal Atrial Fibrillation
CKD V-cr mid 3s
-s/p left AV fistula formation 02/15/24 for potential future HD needs
DM 2
HLD
BPH s/p TURP
Urinary Retention s/p suprapubic catheter placement 03/27/24
Depression
Anemia -procrit out pt
chr met acidosis on po bciarb
Plan:
A/w gen weakness and noted severe hypokalemia with diuresis
K low again today, aggressive repletion given and now normalized to 3.8 on repeat labs
initiate MRA today to assist with K management
plan for bumex 2mg PO now as worsening edema noted
liberate K in diet
cr at baseline , AVF is ready to use when needed
no HD needs currently
hold po bicarb with met alkalosis
monitor labs and wts
BP are some what labile
hgb stable, out pt procrit
d/w pt and primary
-
-
Date of Service: May 03, 2024
CC / HPI / ROS
-
Chief Complaint:
hypokalemia
History of Present Illness:
K low in the setting of diuretics, now normalized
restarted bumex
Review of Systems:
feeling well
ambulating well
Labs
-
Labs:
WBC 5.8 10^3/uL (4.8-10.8) 05/03/24 05:33
RBC 2.90 10^6/uL (4.70-6.10) L 05/03/24 05:33
Hgb 8.8 g/dL (13.0-18.0) L 05/03/24 05:33
Hct 27.3 % (39.0-52.0) L 05/03/24 05:33
Plt Count 159 10^3/uL (130-400) 05/03/24 05:33
Sodium 141 mmol/L (135-145) 05/03/24 12:03
Potassium 3.8 mmol/L (3.5-5.1) 05/03/24 12:03
Chloride 103 mmol/L (98-107) 05/03/24 12:03
Carbon Dioxide 30 mmol/L (22-30) 05/03/24 12:03
BUN 44 mg/dl (9-20) H 05/03/24 12:03
Creatinine 3.2 mg/dL (0.7-1.3) H 05/03/24 12:03
eGFR 19.44 05/03/24 12:03
Glucose 121 mg/dl (70-99) H 05/03/24 12:03
Calcium 8.8 mg/dl (8.4-10.2) 05/03/24 12:03
Albumin 3.0 g/dl (3.5-5.0) L 05/02/24 04:34
Physical Exam
-
Vital Signs:
Vital Signs
Temp Pulse Resp BP Pulse Ox
98.4 F 52 16 142/68 98
05/03/24 11:10 05/03/24 11:10 05/03/24 11:10 05/03/24 11:10 05/03/24 11:10
Cardiovascular:: Regular rate and rhythm
Respiratory:: Bilateral: CTA
Lung Excursion:: Normal
Abdomen:: Nontender and Soft
Bowel Sounds:: Normal
Extremity Edema:: +2: Bilateral: (to the thighs)
Zaragoza Catheter: Yes
[2024-05-03 15:01] VITALS: BP 152/73
[2024-05-03] MEDS: BUMEX 2 MG PO (16:11)
[2024-05-03] MEDS: LIPITOR 40 MG PO (21:59)
[2024-05-03 23:15] VITALS: BP 154/71
[2024-05-04] MEDS: ZOSYN 50 IV (04:15)
[2024-05-04 04:58] VITALS: BMI 29.1
[2024-05-04 07:34] LABS: % Basophils 1.3 % (0-2); % Eosinophils 5.4 % (0-6); % Immature Granulocytes 0.2 % (0-0.5); % Lymphocytes 29.1 % (20.5-51.1); % Monocytes 6.3 % (1.7-9.3); % Neutrophils 57.7 % (42.2-75.2); Absolute Basophils 0.1 10^3/uL (0-0.2); Absolute Eosinophils 0.3 10^3/uL (0-0.7); Absolute Lymphocytes 1.6 10^3/uL (1.2-3.4); Absolute Monocytes 0.4 10^3/uL (0.1-0.6); Absolute Neutrophils 3.2 10^3/uL (1.4-6.5); Hematocrit 27.3 % (39.0-52.0); Mean Corpuscular Hgb 30.6 pg (27.0-31.0); Mean Corpuscular Volume 92.9 fL (80.0-94.0); Mean Platelet Volume 10.4 fL (7.4-10.4); Nucleated Red Blood Cells % 0 % (-); Platelet Count 156 10^3/uL (130-400); Red Blood Cell Count 2.94 10^6/uL (4.70-6.10); White Blood Cell Count 5.6 10^3/uL (4.8-10.8)
[2024-05-04 07:39] VITALS: BP 160/77
[2024-05-04 07:43] LABS: Blood Urea Nitrogen 43 mg/dl (9-20); Carbon Dioxide 29 mmol/L (22-30); Chloride 104 mmol/L (98-107); Estimated Creatinine Clearance 19 ml/min; Glucose 86 mg/dl (70-99); Potassium 4.1 mmol/L (3.5-5.1); Sodium 144 mmol/L (135-145); eGFR 16.87
--- NOTE | 2024-05-04 08:41 | W.PN.HOSP.TC ---
Addendum entered and electronically signed by Roland Daniel MD 05/04/24 13:12:
Total time spent on d/c = 39 min. This included today's physical exam, progress note, review of laboratory and diagnostic data, preparation of discharge documents and prescriptions, and discussions about the pt's hospital course and discharge plan
with the patient and other medical coordinator pesticide use involved in the patient's care.
Addendum entered and electronically signed by Roland Daniel MD 05/04/24 10:20:
I saw and evaluated the patient. I reviewed the resident�s note and agree with findings and plan as documented in the resident�s note.
No new complaints.
Gen: remains NAD, Awake and alert
Eyes: remains EOMI, PERRLA, no scleral icterus.
Neck: supple.
CV: RRR, +S1/S2, no m/r/g.
Resp:CTAB anteriorly, no rales, wheezes, or rhonchi.
Abd: +BS, soft, NT, ND
Skin: No rashes. remains with 2+ B/L LE edema
Neuro: CN 2-12 intact, non-focal.
Psych: Normal mood and affect.
Acute UTI:
-cont to follow UCx
-ID following
-cont Zosyn
-Uro to change SPT
Hypokalemia:
-Mg normal
-K has been repleted and aldactone started
-Increase daily potassium supplementation to 40meq. Give an extra dose of 40meq K today.
-start aldactone
-change daily K to 20meq
RLE weakness:
-MRI brain without acute CVA
-PT/OT
CKD5:
-bumex has been resumed
Medically cleared for d/c once Urology changes SPT (discussed with Dr. Pineda).
Original Note:
Today's Communication/Plan
-
ID input appreciated for appropriate antibiotic selection
continue KCl 40mg daily
continue aldacton, bumex
Discharge planning after suprapubic catheter placement by urology
Assessment / Plan
Assessment / Plan
IMPRESSION: 73-year-old male with past history of CKD stage IV, paroxysmal A-fib on Eliquis, diabetes mellitus type 2, CVA (with left sided weakness), BPH s/p TURP, urinary retention (last month, s/p suprapubic catheter), presenting with right lower
extremity weakness for the past week.
PLAN:
Pyuria with bacteriuria
Urine culture with Citrobacter freundii and Enterococcus faecalis
ID following-currently on Zosyn, appreciate appropriate antimicrobial selection given culture data
No leukocytosis, fever
Urology consult appreciated for suprapubic catheter replacement if needed
CKD stage IV
Creatinine at baseline, nephrology following, no HD needs currently
Left AV fistula placed 02/15/2024 for potential future HD needs
Bumex held, likely resume today
Hypokalemia
potassium 4.1 today
Nephrology following
Continue KCl 40 meq daily
Continue aldactone
paroxysmal A-fib
Currently in sinus rhythm
Continue Eliquis
RLE weakness
History of previous stroke
Per , R>L lower extremity weakness.
CT head -no acute intracranial abnormality
MRI brain pending
Continue Eliquis
HLD
Continue statin
Diabetes mellitus type 2
Not on meds
Monitor glucose levels
Hemoglobin A1c 6.0
Depression
Continue Zoloft
Anemia
Outpatient Procrit
Full code
DVT prophylaxis Eliquis
Anticipated Discharge: Today
Subjective/Interval History
-
Date of Service: May 04, 2024
Objective Data
-
Labs:
Laboratory Results
05/04/24
06:21
WBC 5.6
Hgb 9.0 L
Hct 27.3 L
Plt Count 156
Sodium 144
Potassium 4.1
Chloride 104
Carbon Dioxide 29
BUN 43 H
Creatinine 3.6 H
Glucose 86
Calcium 9.0
Vital Signs:
Vital Signs
Temp Pulse Resp BP Pulse Ox
98.2 F 56 18 154/71 97
05/03/24 23:15 05/03/24 23:15 05/03/24 23:15 05/03/24 23:15 05/03/24 23:15
I&O
05/03/24 05/04/24 05/05/24
06:59 06:59 06:59
Intake Total 1420 / 1420 840 / 840
Output Total 750 / 750 1600 / 1600
Balance 670 / 670 -760 / -760
Review of Systems
-
History Source: Patient
All other systems: Reviewed and negative
Constitutional: Reports No Symptoms
EENT: Reports No Symptoms Reported
Respiratory: Reports No Symptoms
Cardiac: Reports No Symptoms
Abdomen/GI: Reports No Symptoms
Breast: Reports No Symptoms
Genitourinary: Reports No Symptoms
Musculoskeletal: Reports Edema and Other (Right lower extremity weakness)
Skin: Reports No Symptoms
Neuro: Reports Weakness
Endocrine: Reports No Symptoms
Hematologic / Lymphatic: Reports No Symptoms
Physical Exam
-
General: No Apparent Distress
HEENT: Normocephalic
Respiratory: Clear to Auscultation
Cardiac: Regular Rhythm and S1/S2
GI: Soft, Nontender and Nondistended
Genito-urinary: No Costovertebral Tender
Musculoskeletal: Edema, Right Lower Extrem and Edema, Left Lower Extrem
Skin: Warm and Dry
Neuro: Awake, Alert and Other (Bilateral lower extremity weakness (cannot lift leg off bed))
Hematologic / Lymphatic: No Lymphadenopathy
Psych: Calm
[2024-05-04] MEDS: SODIUM BICARBONATE 650 MG PO ×2 (08:54→15:09)
[2024-05-04] MEDS: ALDACTONE 25 MG PO (08:54)
[2024-05-04] MEDS: KEPPRA 500 MG PO (08:55)
[2024-05-04] MEDS: ROCALTROL 0.25 MCG PO (08:55)
[2024-05-04] MEDS: ZOLOFT 100 MG PO (08:55)
[2024-05-04] MEDS: ELIQUIS 2.5 MG PO (08:55)
[2024-05-04] MEDS: NEURONTIN 100 MG PO ×2 (08:55→15:09)
[2024-05-04] MEDS: BUMEX 2 MG PO (08:55)
[2024-05-04] MEDS: KCL PO (10:29)
[2024-05-04] MEDS: KCL 20 MEQ PO (10:29)
[2024-05-04] MEDS: AMOXIL 500 MG PO (10:29)
[2024-05-04] MEDS: CIPRO 500 MG PO (10:29)
--- NOTE | 2024-05-04 12:04 | CM ---
Addendum entered by Antonella Vincent RN 05/04/24 12:23:
Patient discharged from [facility] 1 day prior to re-admission to . PASRR completed on prior admission.
Original Note:
Patient with Hx including Parkinsons Dx & dementia with Dx UTI, hypokalemia. Plan urology to change suprapubic tube today. Room air. PT & OT recommend skilled rehab.
Spoke with Tori, [facility] (cell [phone]);
they are able to accept the patient today - transport time conveyed.
The for report [phone], fax [phone].
Spoke with patient's Shruthi; she agrees with the patient going to [facility] today by ambulance. She thinks her will be unable to sign an IMM as he writes slowly with difficulty. IMM completed with and copy sent to her
email at .[employer].
Plan [facility] SNF today by ambulance.
--- NOTE | 2024-05-04 12:30 | W.PN.NEPH.PH ---
Today's Communication / Plan
-
- bumex/amilcar
- trend Cr and weights
Assessment/Plan
-
IMP:
Ambulatory Dysfunction
Hypokalemia
Dementia
Paroxysmal Atrial Fibrillation
CKD V-cr mid 3s
-s/p left AV fistula formation 02/15/24 for potential future HD needs
DM 2
HLD
BPH s/p TURP
Urinary Retention s/p suprapubic catheter placement 03/27/24
Depression
Anemia -procrit out pt
chr met acidosis on po bciarb
Plan:
A/w gen weakness and noted severe hypokalemia with diuresis
K normalized to 4.1
initiate MRA today to assist with K management
bumex 2mg PO daily, continued edema
Cr bump today to 3.6 but still within baseline (3.2-3.7)
liberate K in diet
AVF is ready to use when needed
no HD needs currently
hold po bicarb with met alkalosis
monitor labs and wts
BP are some what labile
hgb stable, out pt procrit
d/w pt and primary
-
-
Date of Service: May 04, 2024
CC / HPI / ROS
-
Chief Complaint:
hypokalemia
History of Present Illness:
K low in the setting of diuretics, now normalized
restarted bumex
Review of Systems:
feeling well
ambulating well
Labs
-
Labs:
WBC 5.6 10^3/uL (4.8-10.8) 05/04/24 06:21
RBC 2.94 10^6/uL (4.70-6.10) L 05/04/24 06:21
Hgb 9.0 g/dL (13.0-18.0) L 05/04/24 06:21
Hct 27.3 % (39.0-52.0) L 05/04/24 06:21
Plt Count 156 10^3/uL (130-400) 05/04/24 06:21
Sodium 144 mmol/L (135-145) 05/04/24 06:21
Potassium 4.1 mmol/L (3.5-5.1) 05/04/24 06:21
Chloride 104 mmol/L (98-107) 05/04/24 06:21
Carbon Dioxide 29 mmol/L (22-30) 05/04/24 06:21
BUN 43 mg/dl (9-20) H 05/04/24 06:21
Creatinine 3.6 mg/dL (0.7-1.3) H 05/04/24 06:21
eGFR 16.87 05/04/24 06:21
Glucose 86 mg/dl (70-99) 05/04/24 06:21
Calcium 9.0 mg/dl (8.4-10.2) 05/04/24 06:21
Albumin 3.0 g/dl (3.5-5.0) L 05/02/24 04:34
Physical Exam
-
Vital Signs:
Vital Signs
Temp Pulse Resp BP Pulse Ox
98.5 F 81 20 160/77 96
05/04/24 07:39 05/04/24 07:39 05/04/24 07:39 05/04/24 07:39 05/04/24 08:00
Cardiovascular:: Regular rate and rhythm
Respiratory:: Bilateral: CTA
Lung Excursion:: Normal
Abdomen:: Nontender and Soft
Bowel Sounds:: Normal
Extremity Edema:: +3: Bilateral: (to the thighs)
Zaragoza Catheter: Yes
--- NOTE | 2024-05-04 12:30 | W.DCSUMMARY ---
Addendum entered and electronically signed by Roland Daniel MD 05/04/24 15:13:
Read, reviewed, and agree. See same day progress note for additional details.
Original Note:
Discharge Summary
Discharge Data
Date of Admission: 04/30/24
Date of Discharge: 05/04/24
-
Pending Results: No
Hospital Course
Primary diagnosis:
Ambulatory dysfunction
Catheter associated urinary tract infection
Hypokalemia
Secondary diagnoses:
Dementia
Paroxysmal Atrial fibrillation
Chronic kidney disease stage IV
Diabetes mellitus type 2
Benign prostate hyperplasia status post TURP
History of urinary retention status post suprapubic catheter
Chronic anemia
Hyperlipidemia
History of cerebrovascular attack
Hospital course: 73-year-old male with past history of chronic kidney disease stage IV, A-fib on Eliquis, dementia presented right lower extremity weakness. Patient was admitted to the hospital in March for urinary retention, suprapubic catheter was
placed then and patient was discharged to SNF. The following day after discharge from SNF to home, noted imbalance and right lower extremity weakness. Eliquis was initially held. Head CT and brain MRI showed no acute intracranial
abnormalities. Eliquis was restarted. Patient had normal sinus rhythm throughout hospitalization. Significant right lower extremity weakness was not appreciated this admission. Nephrology with following patient. Hypokalemia was noted on
admission (2.8), Bumex was initially held and potassium was repleted. Given hypokalemia, daily KCl 20 meq was started and spironolactone was added to assist with potassium management. Bumex was resumed for continued edema. Creatinine remained
near baseline on this admission (~3.5), patient has left arm AV fistula in place for potential future HD needs. Patient was found to have pyuria and bacteriuria with no fever, leukocytosis, urinary symptoms. Initially started on vancomycin,
transitioned to Zosyn per infectious disease input. Urine culture showed growth of Enterococcus faecalis and Citrobacter freundii. Patient will need 4 additional days of amoxicillin and ciprofloxacin for treatment of catheter associated urinary
tract infection. Suprapubic catheter was last placed on 03/27/2024. Replacement was done at this admission, patient will need suprapubic catheter change in 4 to 6 weeks after discharge. Hemoglobin remained stable this admission.
Today, patient is medically stable to be discharged to acute rehab facility with ciprofloxacin 500 mg twice daily and amoxicillin 500 mg daily for an additional 4 days, Aldactone 25 mg daily and KCl 20meq daily. Will need outpatient follow-up with
nephrology and urology in 4 to 6 weeks. Patient was advised to see outpatient boxcar weigher for left toenail management. Will need to continue home meds.
Discharge Plan
-
Patient Disposition: Acute Rehab Facility
Discharge Diagnosis/Procedures: Ambulatory dysfunction, hypokalemia, dementia, paroxysmal atrial fibrillation, benign prostate hyperplasia status post transurethral radical prostatectomy, chronic anemia, hyperlipidemia, chronic kidney disease stage
V, diabetes mellitus type 2, history of cerebrovascular accident, atherosclerotic cardiovascular disease, depression
Condition: Fair
Diet: 2 Gram Sodium and Diabetic, Carb Controlled
Activity: With assistance
Driving Restrictions: No driving
Bathing Restrictions: None
Other Services: VN, PT and OT
Activity Restrictions/Additional Instructions:
Wound Care Instructions Left Great Toe- Keep secured with yessenia. Change Q 48 hours and PRN. PLEASE FOLLOW UP WITH YOUR GRIEVANCE AND APPEALS COORDINATOR.
Instructions: *PCP/Other Operational Intelligence Analyst Heart Failure Instructions
Referrals:
UNKNOWN - PT DOES,NOT KNOW [Family Provider] -
Additional Discharge Medication Instructions: You will need outpatient follow-up with nephrology in 4-6 weeks. You need a BMP in 3 days, script from PCP. Please follow-up with urology for suprapubic catheter change in 4 to 6 weeks.
Prescriptions:
New
spironolactone 25 mg Tablet
25 mg PO DAILY Qty: 30 0RF
amoxicillin 500 mg Capsule
500 mg PO Q24H Qty: 4 0RF
ciprofloxacin HCl 500 mg Tablet
500 mg PO BID Qty: 8 0RF
potassium chloride 20 mEq Tablet,Er Particles/Crystals
20 meq PO DAILY@1000 Qty: 30 0RF
Continued
bumetanide 1 MG tablet
2 mg PO DAILY
sertraline 100 mg tablet
100 mg PO DAILY
atorvastatin 40 mg tablet
40 mg PO HS
calcitriol 0.25 mcg capsule
0.25 mcg PO DAILY
levetiracetam [Keppra] 500 mg Tablet
500 mg PO BID
gabapentin 100 mg Capsule
100 mg PO TID
sodium bicarbonate 650 mg Tablet
650 mg PO TID
Eliquis 2.5 mg Tablet
2.5 mg PO BID
Retacrit 2,000 unit/mL Solution
2,000 unit SC WEEKLY
Discharge Orders:
Discharge Patient (As Directed); Ordered 05/04/24
Ordered By: Roland Daniel
Discharge Date and Time
Print Language: GRENADIAN
--- NOTE | 2024-05-04 12:41 | CONS.URO ---
Consultation
-
Performing Provider: Edwin
Reason for Consultation: SPT change
Medical History
History of Present Illness
03/27/2024 for NGB, SPT placed in OR by Dr Pisano -- was to be exchanged in office this past week; intercurrent illness precluded
Dr Avery's Hx: 'patient admitted 03/27-04/03 discharged to SNF; discharged from SNF yesterday to home care with , brought in today for issues with his balance
Past Medical History
Past Medical History: Other (dementia, paroxysmal afib on Eliquis, CKD IV (with left arm AV fistula 02/15/24 for potential future HD need), DM2, CVA, )
Past Surgical History: Other (BPH s/p TURP, urinary retention s/p suprapubic catheter on 03/27/24)
Allergies/Home Medications
Allergies
Allergy/AdvReac Type Severity Reaction Status Date / Time
alcohol Allergy Anaphylaxis Verified 04/30/24 11:02
to beer
Anesthetics - Amide Type - Allergy SEE BELOW Verified 05/01/24 15:35
Select A
dexamethasone [From Decadron] Allergy Hypotension Verified 04/30/24 11:02
tomato Allergy Anaphylaxis Verified 04/30/24 11:02
Home Medications
�Medication �Instructions �Recorded �Confirmed �Type
bumetanide 1 mg tablet 2 mg PO DAILY Fluid 09/29/10 04/30/24 History
retention/Swelling
sertraline 100 mg tablet 100 mg PO DAILY depression/anxiety 07/10/22 04/30/24 History
atorvastatin 40 mg tablet 40 mg PO HS Hyperlipidemia 07/11/22 04/30/24 History
calcitriol 0.25 mcg capsule 0.25 mcg PO DAILY Kidney Disease 07/11/22 04/30/24 History
gabapentin 100 mg capsule 100 mg PO TID pain 12/14/23 04/30/24 History
levetiracetam 500 mg tablet 500 mg PO BID seizures 12/14/23 04/30/24 History
(Keppra)
sodium bicarbonate 650 mg tablet 650 mg PO TID Supplement 02/07/24 04/30/24 History
apixaban 2.5 mg tablet (Eliquis) 2.5 mg PO BID Blood Clot 04/30/24 04/30/24 History
Prevention/Tx
epoetin mehreen-epbx 2,000 unit/mL 2,000 unit SC WEEKLY anemia 04/30/24 04/30/24 History
injection solution (Retacrit)
amoxicillin 500 mg capsule 500 mg PO Q24H Infection #4 caps 05/04/24 Rx
ciprofloxacin HCl 500 mg tablet 500 mg PO BID Infection #8 tabs 05/04/24 Rx
potassium chloride 20 mEq 20 meq PO DAILY@1000 Electrolyte 05/04/24 Rx
tablet,extended release(part/cryst) Repletion #30 tabs
spironolactone 25 mg tablet 25 mg PO DAILY Kidney Disease #30 05/04/24 Rx
tabs
Physical Exam
Vital Signs
Vital Signs
Temp Pulse Resp BP Pulse Ox
98.5 F 81 20 160/77 96
05/04/24 07:39 05/04/24 07:39 05/04/24 07:39 05/04/24 07:39 05/04/24 08:00
Lab / Testing Results
Laboratory Results
05/04/24 06:21
05/04/24 06:21
Physical Exam
elderly male
General: No Apparent Distress
GI: Other (existing SPT sutured in place --> removed; new 16 Fr SPT placed with return of urine)
Assessment / Plan
-
NGB managed by SPT
CAUTI
with SPT exchanged today, next change should occur in 4-6 weeks
tx UTI
Data Reviewed
-
Lab Data: Labs Reviewed
Old Records: Reviewed
[2024-05-04 15:03] VITALS: BP 150/68
== END 2024-05-04 17:08 | DRG 699 ==
LOC: 4 EAST ACU 21:57
PROVIDERS: Nurse Practitioner Family; Physician Assistant; Student in an Organized Health Care Education/Training Program; ADMITTING PHYSICIAN Student in an Organized Health Care Education/Training Program; ATTENDING PHYSICIAN Internal Medicine; CONSULT PHYSICIAN Internal Medicine; CONSULT PHYSICIAN Internal Medicine Infectious Disease; CONSULT PHYSICIAN Specialist; EMERGENCY PHYSICIAN Emergency Medicine
DX: T83.511A Infection and inflammatory reaction due to indwelling urethral catheter, initial encounter (principal); E87.4 Mixed disorder of acid-base balance; F02.83 Dementia in other diseases classified elsewhere, unspecified severity, with mood disturbance; F02.84 Dementia in other diseases classified elsewhere, unspecified severity, with anxiety; I12.0 Hypertensive chronic kidney disease with stage 5 chronic kidney disease or end stage renal disease; N18.5 Chronic kidney disease, stage 5; I69.354 Hemiplegia and hemiparesis following cerebral infarction affecting left non-dominant side; E11.22 Type 2 diabetes mellitus with diabetic chronic kidney disease; G20.A1 Parkinson's disease without dyskinesia, without mention of fluctuations; E66.9 Obesity, unspecified; F32.A Depression, unspecified; D64.9 Anemia, unspecified; L89.151 Pressure ulcer of sacral region, stage 1; N39.0 Urinary tract infection, site not specified; Y84.6 Urinary catheterization as the cause of abnormal reaction of the patient, or of later complication, without mention of misadventure at the time of the procedure; B95.2 Enterococcus as the cause of diseases classified elsewhere; B96.89 Other specified bacterial agents as the cause of diseases classified elsewhere; E78.00 Pure hypercholesterolemia, unspecified; E87.6 Hypokalemia; G47.30 Sleep apnea, unspecified; G89.29 Other chronic pain; M54.50 Low back pain, unspecified; I25.10 Atherosclerotic heart disease of native coronary artery without angina pectoris; I44.0 Atrioventricular block, first degree; I48.0 Paroxysmal atrial fibrillation; N31.9 Neuromuscular dysfunction of bladder, unspecified; N40.1 Benign prostatic hyperplasia with lower urinary tract symptoms; R33.8 Other retention of urine; R60.0 Localized edema; R26.2 Difficulty in walking, not elsewhere classified; W19.XXXA Unspecified fall, initial encounter; Z68.29 Body mass index [BMI] 29.0-29.9, adult; Z79.01 Long term (current) use of anticoagulants; Z79.899 Other long term (current) drug therapy; Z87.891 Personal history of nicotine dependence; Z90.79 Acquired absence of other genital organ(s); Z87.81 Personal history of (healed) traumatic fracture; Z88.8 Allergy status to other drugs, medicaments and biological substances
CPT/HCPCS: 70450; 70551; 71046; 80048; 80053; 81003; 81015; 82962; 83735; 84132; 85025; 85027; 87077; 87086; 87186; 93005; 97530; 99285

== ENCOUNTER 2025-06-13 12:33 | Emergency (ER) | payer MEDICARE, SELFPAY ==
[2025-06-13 12:35] VITALS: BP 153/106
[2025-06-13 12:36] VITALS: BP 153/106
--- NOTE | 2025-06-13 12:54 | ED.GENMED ---
History of Present Illness
General
Chief Complaint: Catheter/Tube Problem
Time Seen by Provider: 06/13/25 12:37
History of Present Illness
History of Present Illness:
74-year-old male presents to the emergency department for evaluation of a dislodged cecostomy tube. Tube was placed and draining earlier this year at [facility] due to recurrent ileus and constipation. Patient does still passed some
degree of stool through his rectum however. states the tube was likely dislodged last night. Patient offers no complaints at this time
Past History
Past History
ED Past Medical History: Arrthythmia, CAD (Mild, nonobstructive coronary artery disease.), HTN, Hypercholesterolemia, IDDM, Other (Renal insufficiency) and Other (Sleep apnea, chronic LBP)
ED Past Surgical History: Cardiac (Cardiac catheterizations revealing minimal coronary artery disease.) and Urological (TURP)
Social History
Tobacco: Non-smoker
Alcohol: None
Drug: None
Personal:
Living: with family
Employment: Retired
Family History
Family History: Other (reviewed and Noncontributory)
Review of Systems
Review of Systems
Allergies reviewed?: Yes
All Other Systems: ROS reviewed and negative except as documented in HPI and ROS
Phy Exam
Physical Exam
Physical Exam:
GEN: Well appearing, NAD, WDWN
HEENT: Oral mucosa moist, no scleral icterus
Cardiac: Regular rate
Lung: No respiratory distress, no tachypnea
Abdomen: Cecostomy site in the right lower quadrant with scant fecal material surrounding the opening, suprapubic tube in place
MSK: No gross deformity or injuries
Skin: Good color, no pallor or jaundice, no rashes
Neuro: AO x3, moves all extremities freely
Psych: Calm, cooperative
Course
Orders/Labs/Results
Orders:
Orders
06/13/25 13:10
CR Cont Inj Eval Tube(by Rad) Urgent
Comment:
Reason For Exam: cecostomy tube replacement
Vital Signs
Initial and Last Documented VS:
Initial Vital Signs
Temp Pulse Resp BP Pulse Ox
97.8 F 56 18 153/106 92
06/13/25 12:35 06/13/25 12:35 06/13/25 12:35 06/13/25 12:35 06/13/25 12:35
Last Documented Vital Signs
Temp Pulse Resp BP Pulse Ox
97.8 F 56 18 165/91 96
06/13/25 12:35 06/13/25 12:35 06/13/25 12:35 06/13/25 13:00 06/13/25 13:00
MDM/Problems Addressed
MDM/Problems Addressed:
I was unable to pass a comparable size to, was able to pass a 16 [place]ese feeding tube. Unfortunately, our feeding tubes in this emergency department do not have the ability to connect to the drainage tube; thus this tube is placed to be a temporary
placeholder to keep the tract open until he can have a definitive tube placed as an outpatient
*Pulse Oximetry
SaO2: 92
Patient hypoxic: no
*Critical Care Note
Total Time (30-74mins, 75-104mins- exclusive of procedures): Not Applicable
ED Attending Note
-
Portions of this chart may have been created with voice recognition software.� Occasional wrong word or��sound alike� substitutions may have occurred due to the inherent limitations of voice recognition software.
Discharge Plan
Departure
Patient Disposition: Home (Routine Discharge)
Date of Disposition: 06/13/25
Time of Disposition: 14:20
Patient with high blood pressure during this ER visit?: No
Discharge Problem:
Cecostomy tube dysfunction
Prescriptions:
No Action
bumetanide 1 MG tablet
2 mg PO DAILY
sertraline 100 mg tablet
100 mg PO DAILY
atorvastatin 40 mg tablet
40 mg PO HS
calcitriol 0.25 mcg capsule
0.25 mcg PO DAILY
levetiracetam [Keppra] 500 mg Tablet
500 mg PO BID
gabapentin 100 mg Capsule
100 mg PO TID
sodium bicarbonate 650 mg Tablet
650 mg PO TID
Eliquis 2.5 mg Tablet
2.5 mg PO BID
Retacrit 2,000 unit/mL Solution
2,000 unit SC WEEKLY
spironolactone 25 mg Tablet
25 mg PO DAILY Qty: 30 0RF
amoxicillin 500 mg Capsule
500 mg PO Q24H Qty: 4 0RF
ciprofloxacin HCl 500 mg Tablet
500 mg PO BID Qty: 8 0RF
potassium chloride 20 mEq Tablet,Er Particles/Crystals
20 meq PO DAILY@1000 Qty: 30 0RF
Activity Restrictions/Additional Instructions:
Contact your surgery office at [facility] on Sunday to upsize and exchange your tube
Interventions
Interventions:
*Risk Screen - Suicide Last Done: 06/13/25 12:35
*Neglect/Abuse Screening Last Done: 06/13/25 12:35
*ED COVID-19 Vaccine History Last Done: 06/13/25 12:35
*ED Influenza Vaccine History Last Done: 06/13/25 12:35
QP-Ylfnee-Jtvzymggrh Assessment Last Done: 06/13/25 12:41
ED-Male Genitourinary Assessment Last Done: 06/13/25 12:41
Discharge Date and Time
Print Language: JAPANESE
[2025-06-13 13:00] VITALS: BP 165/91
[2025-06-13 16:27] VITALS: BP 177/77
[2025-06-13 17:00] VITALS: BP 171/94
[2025-06-13 17:55] VITALS: BP 172/96
== END 2025-06-13 17:30 | disposition home or self-care (01) ==
LOC: EMR 12:33
PROVIDERS: EMERGENCY PHYSICIAN Emergency Medicine; FAMILY PHYSICIAN Nurse Practitioner Family
DX: K94.03 Colostomy malfunction (principal); E10.9 Type 1 diabetes mellitus without complications; I25.10 Atherosclerotic heart disease of native coronary artery without angina pectoris; I10 Essential (primary) hypertension; E78.00 Pure hypercholesterolemia, unspecified; G47.30 Sleep apnea, unspecified; G89.29 Other chronic pain; M54.50 Low back pain, unspecified; Z79.4 Long term (current) use of insulin
CPT/HCPCS: 99283; 49465